=== PATIENT | female | born 1970 | race American Indian/Alaskan Native ===

== ENCOUNTER 2016-03-15 14:27 | Emergency (ER) | payer MEDICAID ==
[2016-03-15 14:59] VITALS: BP 112/81
--- NOTE | 2016-03-15 15:22 | Emergency Department Report ---
Chief Complaint: Head Injury Stated Complaint: HEAD INJURY Time Seen by Provider: 03/15/16 15:17 - HPI History of Present Illness: 46-year-old female presents today post head injury that occurred this morning. Patient states that she hit her head on the corner of a wall. Positive for nausea. Denies decrease in vision but states she is having trouble focusing. Denies fever, chills, chest pain, shortness of breath, abdominal pain. The patient recently had an MRI because her doctors think she may have seizures. - ROS Review of Systems: Per HPI - Exam Vital Signs: Vital Signs 03/15/16 14:55 Temperature 98.6 F Pulse Rate 87 Respiratory 16 Rate Blood Pressure 112/81 O2 Sat by Pulse 97 Oximetry Physical Exam: General: 46-year-old female in no acute distress. Well-developed, well- nourished. CV: Regular rate and rhythm. Lungs: Clear to auscultation bilaterally. Neuro: Alert and oriented 3, normal gait, fluid speech, EOMs intact, no facial droop, normal facial sensation, GCS equals 15 MSE screening note: Focused history and physical exam performed. Due to findings the following was ordered: ED Disposition for MSE Condition: Stable
[2016-03-15 15:40] LABS: Hematocrit 37.5 % (30.3-42.9); Mean Corpuscular HGB Conc 32 % (30-34); Mean Corpuscular Hemoglobin 29 pg (28-32); Mean Corpuscular Volume 91 fl (79-97); Platelet Count 243 K/mm3 (140-440); Red Blood Count 4.13 M/mm3 (3.65-5.03); White Blood Count 6.4 K/mm3 (4.5-11.0)
[2016-03-15 15:53] LABS: Red Cell Distribution Width 31.9 % (13.2-15.2)
[2016-03-15 16:11] LABS: Blood Urea Nitrogen 8 mg/dL (7-17); Calcium 8.2 mg/dL (8.4-10.2); Carbon Dioxide 26 mmol/L (22-30); Chloride 106.3 mmol/L (98-107); Glucose 83 mg/dL (65-100); Potassium 3.7 mmol/L (3.6-5.0); Sodium 143 mmol/L (137-145)
[2016-03-15 16:27] LABS: Anion Gap 14 mmol/L
--- NOTE | 2016-03-15 16:51 | Cat Scan Report ---
CT HEAD WITHOUT CONTRAST INDICATION: Head injury. COMPARISON: 10/28/2013. FINDINGS: Noncontrast head CT again demonstrates normal ventricles and sulci without acute or recent infarct, hemorrhage, mass effect or midline shift. No abnormal extra-axial fluid collections. Posterior fossa structures and basilar cisterns appear within normal limits. Symmetric eye globes. Clear paranasal sinuses and mastoid air cells. Intact calvarium. Normal overlying scalp soft tissues. Few radiopaque dental material incidentally noted. CONCLUSION: No acute intracranial CT abnormality, as described. Thank you for the opportunity to participate in this patient's care.
[2016-03-15 17:05] LABS: Anisocytosis 2+; Basophils % (Manual) 0 % (0.0-1.8); Blastocytes % (Manual) 0 %
[2016-03-15 17:06] LABS: Diff Status Complete; Poikilocytosis 1+; Target Cells Few
--- NOTE | 2016-03-17 14:22 | ED Elopement Review ---
ED Pt Elopement review - Results review Lab results: Laboratory Tests 03/15/16 03/15/16 15:24 15:24 WBC 6.4 RBC 4.13 Hgb 12.0 Hct 37.5 MCV 91 MCH 29 MCHC 32 RDW 31.9 H Plt Count 243 Add Manual Diff Complete Total Counted 100 Seg Neuts % (Manual) 64.0 Band Neutrophils % 0 Lymphocytes % (Manual) 28.0 Reactive Lymphs % (Man) 0 Monocytes % (Manual) 5.0 Eosinophils % (Manual) 3.0 Basophils % (Manual) 0 Metamyelocytes % 0 Myelocytes % 0 Promyelocytes % 0 Blast Cells % 0 Nucleated RBC % Not Reportable Seg Neutrophils # Man 4.1 Band Neutrophils # 0.0 Lymphocytes # (Manual) 1.8 Abs React Lymphs (Man) 0.0 Monocytes # (Manual) 0.3 Eosinophils # (Manual) 0.2 Basophils # (Manual) 0.0 Metamyelocytes # 0.0 Myelocytes # 0.0 Promyelocytes # 0.0 Blast Cells # 0.0 WBC Morphology Not Reportable Hypersegmented Neuts Not Reportable Hyposegmented Neuts Not Reportable Hypogranular Neuts Not Reportable Smudge Cells Not Reportable Toxic Granulation Not Reportable Toxic Vacuolation Not Reportable Dohle Bodies Not Reportable Pelger-Huet Anomaly Not Reportable Tho Rods Not Reportable Platelet Estimate Appears normal Clumped Platelets Not Reportable Plt Clumps, EDTA Not Reportable Large Platelets Not Reportable Giant Platelets Not Reportable Platelet Satelliting Not Reportable Plt Morphology Comment Not Reportable RBC Morphology Not Reportable Dimorphic RBCs Not Reportable Polychromasia Not Reportable Hypochromasia Not Reportable Poikilocytosis 1+ Anisocytosis 2+ Microcytosis Not Reportable Macrocytosis Not Reportable Spherocytes Not Reportable Pappenheimer Bodies Not Reportable Sickle Cells Not Reportable Target Cells Few Tear Drop Cells Not Reportable Ovalocytes Not Reportable Helmet Cells Not Reportable Mliler-Hardtner Bodies Not Reportable [place] Rings Not Reportable Glynn Cells Not Reportable Bite Cells Not Reportable Crenated Cell Not Reportable Elliptocytes Not Reportable Acanthocytes (Spur) Not Reportable Rouleaux Not Reportable Hemoglobin C Crystals Not Reportable Schistocytes Not Reportable Malaria parasites Not Reportable Bhargav Bodies Not Reportable Hem Pathologist Commnt No Sodium 143 Potassium 3.7 Chloride 106.3 Carbon Dioxide 26 Anion Gap 14 BUN 8 Creatinine 0.5 L Estimated GFR > 60 BUN/Creatinine Ratio 16.00 Glucose 83 Calcium 8.2 L - Call Back decision Pt Call Back Decision: Pt to F/U with PMD (syncope should be further evaluated. The patient should informed to follow up with her primary physician if she doesn't have a primary physician she should return to the ED)
== END 2016-03-16 02:15 | disposition left against medical advice (07) ==
LOC: ED 14:27
DX: S09.90XA Unspecified injury of head, initial encounter (principal); W22.8XXA Striking against or struck by other objects, initial encounter; Y93.9 Activity, unspecified; Y92.89 Other specified places as the place of occurrence of the external cause; Y99.9 Unspecified external cause status; Z53.21 Procedure and treatment not carried out due to patient leaving prior to being seen by health care provider
CPT/HCPCS: 36415; 70450; 80048; 85007; 85025

== ENCOUNTER 2016-11-05 09:04 | Emergency (ER) | payer MEDICAID ==
[2016-11-05 09:44] LABS: Basophils % (Auto) 0.4 % (0.0-1.8); Eosinophils % (Auto) 3.6 % (0.0-4.3); Hematocrit 38.5 % (30.3-42.9); Hemoglobin 12.5 gm/dl (10.1-14.3); Mean Corpuscular HGB Conc 32 % (30-34); Mean Corpuscular Hemoglobin 33 pg (28-32); Mean Corpuscular Volume 101 fl (79-97); Platelet Count 316 K/mm3 (140-440); Red Blood Count 3.83 M/mm3 (3.65-5.03); Red Cell Distribution Width 14.4 % (13.2-15.2); White Blood Count 7.7 K/mm3 (4.5-11.0)
[2016-11-05 10:05] LABS: Alanine Aminotransferase 8 units/L (7-56); Albumin 3.9 g/dL (3.9-5); Albumin/Globulin Ratio 1.6 %; Alkaline Phosphatase 99 units/L (35-129); Anion Gap 17 mmol/L; Blood Urea Nitrogen 11 mg/dL (7-17); Calcium 8.5 mg/dL (8.4-10.2); Carbon Dioxide 24 mmol/L (22-30); Chloride 106.5 mmol/L (98-107); Glucose 86 mg/dL (65-100); Lipase 26 units/L (13-60); Potassium 4.1 mmol/L (3.6-5.0); Sodium 143 mmol/L (137-145); Total Protein 6.4 g/dL (6.3-8.2)
[2016-11-05 11:19] LABS: Bacteria,Urine 4+ /HPF (Negative); Bilirubin,Urine NEG (Negative); Blood,Urine LG (Negative); Ketones,Urine NEG (Negative); Leukocyte Esterase,Urine TR (Negative); Mucus,Urine 1+ /HPF; Nitrite,Urine POS (Negative); Protein,Urine <15 mg/dL mg/dL (Negative)
[2016-11-05] MEDS ORDERED: MORPHINE IV ONE (11:25)
--- NOTE | 2016-11-05 11:25 | Emergency Department Report ---
HPI - General Chief Complaint: Abdominal Pain Time Seen by Provider: 11/05/16 11:08 - HPI HPI: This is a 46 year-old female who drove himself in to be seen with a complaint of a four-day history of left lower quadrant abdominal pain as well as some black tarry stools. Patient does have a history of gastric ulcer in the past. She has a history of asthma, anemia, migraine headaches, hypertension, hypothyroidism and has a surgical history of gastric bypass surgery. The patient has required transfusions in the past. She sees a Dr. Hyman at [facility] and her primary care physician is Dr. Kirsten Gaytan. She has been taking Pepto-Bismol "by the [employer]" as well as increasing the sucralfate but she has not gotten any relief. She denies any fever, nausea , vomiting, dysuria, vaginal bleeding or discharge. No recent travel or sick contacts at home. ED Past Medical Hx - Past Medical History Previous Medical History?: Yes Hx Hypertension: Yes Hx Diabetes: No Hx Headaches / Migraines: Yes Hx Psychiatric Treatment: No Hx Asthma: Yes Hx COPD: No Hx HIV: No Additional medical history: hypothyroid. fibromyalgia - Surgical History Past Surgical History?: Yes Additional Surgical History: gastric bypass - Social History Smoking Status: Never Smoker Substance Use Type: None - Medications Home Medications: Home Medications Medication Instructions Recorded Confirmed Last Taken Type ALPRAZolam [Xanax] 1 mg PO HS PRN 11/01/12 03/10/14 10/31/12 23:30 History Duloxetine HCl [Cymbalta] 60 mg PO QDAY 11/01/12 03/10/14 10/31/12 08:00 History HYDROcodone/APAP ORAL LIQD [Lortab 15 ml PO Q6H PRN 11/01/12 03/10/14 10/23/12 History 7.5-500 mg/15 ml] Levothyroxine [Synthroid] 125 mcg PO QAM 11/01/12 03/10/14 10/31/12 07:00 History Pregabalin [Lyrica] 75 mg PO TID 11/01/12 03/10/14 10/31/12 22:00 History SUMAtriptan SUCCINATE [Imitrex] 100 mg PO PRN PRN 11/01/12 03/10/14 10/31/12 22: 30 History Oxycodone HCl/Acetaminophen 1 each PO Q6HR PRN #10 tablet 10/28/13 03/10/14 Unknown Rx [Percocet 10/325 mg] Potassium Chloride [Klor-Con 10] 10 meq PO DAILY 10/28/13 03/10/14 Unknown History Sennosides/Docusate Sodium [Stool 100 mg PO DAILY 10/28/13 03/10/14 Unknown History Softener Tablet] Temazepam 15 mg PO QDAY 10/28/13 03/10/14 Unknown History Valsartan/Hydrochlorothiazide 160 mg PO DAILY 10/28/13 03/10/14 Unknown History [Valsartan-Hctz 320-12.5 mg] clonazePAM [Klonopin] 1 mg PO TID 10/28/13 03/10/14 Unknown History methOCARBAMOL [Robaxin TAB] 500 mg PO DAILY 10/28/13 03/10/14 Unknown History traMADol [Ultram 50 MG tab] 50 mg PO Q6HR PRN #10 tablet 11/05/16 Unknown Rx ED Review of Systems ROS: Stated complaint: LWR ABD PAIN/DARK STOOL Other details as noted in HPI Comment: All other systems reviewed and negative Constitutional: denies: chills, fever Eyes: denies: eye pain, eye discharge, vision change ENT: denies: ear pain, throat pain Respiratory: denies: cough, shortness of breath, wheezing Cardiovascular: denies: chest pain, palpitations Gastrointestinal: abdominal pain, melena. denies: nausea, vomiting Genitourinary: denies: urgency, dysuria, discharge Musculoskeletal: denies: back pain, joint swelling, arthralgia Skin: denies: rash, lesions Neurological: denies: headache, weakness, paresthesias Physical Exam - Physical Exam Vital Signs: Vital Signs 11/05/16 11/05/16 09:07 11:09 Temperature 98.7 F 98.5 F Pulse Rate 65 58 L Respiratory 18 18 Rate Blood Pressure 120/77 Blood Pressure 124/77 [Left] O2 Sat by Pulse 100 Oximetry Physical Exam: GENERAL: The patient is well-developed well-nourished. HENT: Normocephalic. Atraumatic. Patient has moist mucous membranes. EYES: Extraocular motions are intact. Pupils equal reactive to light bilaterally. NECK: Supple. Trachea is midline. CHEST/LUNGS: Clear to auscultation. There is no respiratory distress noted. HEART/CARDIOVASCULAR: Regular. There is no tachycardia. There is no gallop rub or murmur. ABDOMEN: Abdomen is soft. There is some reproducible tenderness to palpation to the left lower quadrant of the abdomen. No guarding rebound tenderness. Patient has normal bowel sounds. There is no abdominal distention. SKIN: Skin is warm and dry. NEURO: The patient is awake, alert, and oriented. The patient is cooperative. The patient has no focal neurologic deficits. The patient has normal speech. MUSCULOSKELETAL: There is no tenderness or deformity. There is no limitation range of motion. There is no evidence of acute injury. RECTAL: No hemorrhoids or lesions seen. There is some dark stool but does not appear to be positive on guaiac testing. ED Course Vital Signs 11/05/16 11/05/16 09:07 11:09 Temperature 98.7 F 98.5 F Pulse Rate 65 58 L Respiratory 18 18 Rate Blood Pressure 120/77 Blood Pressure 124/77 [Left] O2 Sat by Pulse 100 Oximetry ED Medical Decision Making - Lab Data Result diagrams: 11/05/16 09:32 11/05/16 09:32 - Radiology Data Radiology results: report reviewed CT the abdomen and pelvis with IV contrast shows signs consistent of previous gastric bypass surgery as well as a dilated left calyx. Transvaginal/pelvic ultrasound does not show any signs of torsion and shows small bilateral ovarian cysts. - Medical Decision Making 46-year-old female with history of gastric bypass surgery and gastric ulcers presents with the complaint of melena and left lower quadrant abdominal pain. Labs are mostly unremarkable. CT of the abdomen and pelvis with IV contrast does not show any signs of any acute process or etiology of her symptoms. Transvaginal/pelvic ultrasound shows some bilateral ovarian cysts they are small and otherwise there is no torsion or any other acute process. Vital signs stable throughout her ED course. The patient continues saying she is having discomfort but is often seen sleeping and/or reading her book. However the patient does appear stable for discharge home at this time and has been encouraged to follow up with her primary care physician as well as her verification engineer. - Differential Diagnosis diverticulitis, colitis, PUD, ovarian torsion, fibroids Critical Care Time: No Critical care attestation.: If time is entered above; I have spent that time in minutes in the direct care of this critically ill patient, excluding procedure time. ED Disposition Clinical Impression: Rectal bleeding Abdominal pain Qualifiers: Abdominal location: left lower quadrant Qualified Code(s): R10.32 - Left lower quadrant pain Ovarian cyst Qualifiers: Laterality: bilateral Qualified Code(s): N83.201 - Unspecified ovarian cyst, right side Disposition: TO HOME OR SELFCARE Is pt being admited?: No Condition: Stable Instructions: Ovarian Cyst (ED), Rectal Bleeding (ED), Abdominal Pain (ED) Additional Instructions: Please follow-up with your primary care physician as well as her verification engineer. Return to the emergency Department with any worsening of your symptoms or any acute distress. You have been prescribed a medication that is sedating and therefore should not be taken prior to driving, working, and responsible for children and in no way should be mixed with alcohol of any quantity. Prescriptions: traMADol [Ultram 50 MG tab] 50 mg PO Q6HR PRN #10 tablet PRN Reason: Pain Referrals: MATTHEW GAYTAN MD [Staff Physician] - [place] Time of Disposition: 19:05
--- NOTE | 2016-11-05 13:42 | Cat Scan Report ---
CT abdomen and pelvis with contrast: Low abdominal pain. Transverse images were obtained through the low chest to the ischium. Coronal and sagittal 2-D reformatted images included. The visualized lung bases are clear. There are surgical sutures in the gastric fundus with attached small bowel at the mid body. There is a small right peripelvic renal cyst. In the superior left kidney there is a calcification and a central dilated low attenuation region. On the delayed images this area fills with contrast. The kidney is not otherwise remarkable. The nonopacified bowel and mesentery also demonstrate surgical sutures in small bowel loops in the mid left abdomen. No other findings. The appendix is visualized with no inflammatory changes. In IUD appears well-positioned. Impression: 1. Changes consistent with gastric bypass. 2. Dilated calyx/pyramid with small calcification in left upper kidney.
[2016-11-05] MEDS ORDERED: DILAUDID IV ONE (14:04)
[2016-11-05] MEDS ORDERED: BENADRYL ONE (15:06)
[2016-11-05] MEDS ORDERED: BENADRYL IV ONE (15:07)
--- NOTE | 2016-11-05 19:01 | Ultrasound Report ---
FINAL REPORT EXAM: US TRANSVAGINAL HISTORY: pelvic pain TECHNIQUE: Endovaginal ultrasound was performed in multiple grayscale sonographic images were obtained of the uterus and adnexa. Doppler interrogation of the ovaries was performed. PRIORS: Transabdominal pelvic ultrasound 11/05/2016 FINDINGS: Intrauterine device noted. Endometrial stripe thickness is estimated at 3 millimeters. Left ovary measures approximately 4.5 x 3.2 x 3.7 centimeters. Multiple follicles are noted. There is a cyst that measures 2.6 x 2.6 x 1.9 centimeters. Blood flow was detected in the left ovary. Right ovary measures approximately 3.9 x 2.5 x 3.3 centimeters. There is an 11 millimeter cyst. Blood flow was detected in the right ovary. IMPRESSION: 1. Bilateral ovarian cysts are noted. 2. Blood flow was detected in the ovaries, bilaterally. 3. Intrauterine device is noted. 4. Please refer to report from transabdominal pelvic ultrasound from 11/05/2016 for additional information.
--- NOTE | 2016-11-05 19:02 | Ultrasound Report ---
FINAL REPORT EXAM: US PELVIS DUPLEX DOPPLER COMP HISTORY: pelvic pain TECHNIQUE: Transabdominal pelvic ultrasound was performed in multiple grayscale sonographic images were obtained of the uterus and at adnexa. PRIORS: Endovaginal ultrasound of the pelvis from 11/05/2016 FINDINGS: The uterus measures approximately 8.8 x 4.3 x 5.1 centimeters with endometrial stripe thickness 1 millimeter. Left ovary measures approximately 3.3 x 2.3 x 3.7 centimeters. There is a cyst that measures approximately 1.9 x 1.7 centimeters. Right ovary was not visualized. IMPRESSION: 1. 1.9 centimeter left ovarian cyst. 2. Nonvisualization of right ovary. 3. Please refer to dictation from endovaginal ultrasound from 11/05/2016 for additional information.
[2016-11-05 19:37] VITALS: BP 132/78
== END 2016-11-05 19:38 | disposition home or self-care (01) ==
LOC: ED 09:04
DX: N83.201 Unspecified ovarian cyst, right side (principal); R10.32 Left lower quadrant pain; K62.5 Hemorrhage of anus and rectum; I10 Essential (primary) hypertension; G43.909 Migraine, unspecified, not intractable, without status migrainosus; J45.909 Unspecified asthma, uncomplicated
CPT/HCPCS: 36415; 74177; 76830; 80053; 81001; 81025; 83690; 85025; 93975; 96374; 96375; 99284; J1170; J1200; J2270; Q9967

== ENCOUNTER 2018-03-15 07:04 | Observation (INO) | payer MEDICAID, OTHER ==
[2018-03-10 11:17] LABS: Basophils % (Auto) 0.6 % (0.0-1.8); Eosinophils # (Auto) 0.1 K/mm3 (0.0-0.4); Eosinophils % (Auto) 1.7 % (0.0-4.3); Hematocrit 35.6 % (30.3-42.9); Hemoglobin 11.8 gm/dl (10.1-14.3); Lymphocytes # (Auto) 1.4 K/mm3 (1.2-5.4); Lymphocytes % (Auto) 19.4 % (13.4-35.0); Mean Corpuscular HGB Conc 33 % (30-34); Mean Corpuscular Volume 102 fl (79-97); Monocytes # (Auto) 0.5 K/mm3 (0.0-0.8); Monocytes % (Auto) 6.9 % (0.0-7.3); Platelet Count 270 K/mm3 (140-440); Red Blood Count 3.49 M/mm3 (3.65-5.03); Red Cell Distribution Width 13.6 % (13.2-15.2)
[2018-03-10 11:30] LABS: BUN/Creatinine Ratio 20; Blood Urea Nitrogen 10 mg/dL (7-17); Calcium 8.4 mg/dL (8.4-10.2); Hemolysis Index 6
--- NOTE | 2018-03-10 15:20 | Anesthesia Consultation ---
Anesthesia Consult and Med Hx Date of service: 03/10/18 - Airway Anesthetic Teeth Evaluation: Poor ROM Head & Neck: Adequate Mental/Hyoid Distance: Adequate Mallampati Class: Class III Intubation Access Assessment: Possibly Difficult - Pulmonary Exam CTA: Yes - Cardiac Exam Cardiac Exam: RRR - Pre-Operative Health Status ASA Pre-Surgery Classification: ASA3 Proposed Anesthetic Plan: General Nerve Block: TAP Block (AMOS, HTN, Asthma, Denies GERD) - Pulmonary Hx Asthma: Yes (Last treated 4 weeks ago) COPD: No Hx Pneumonia: No Hx Sleep Apnea: Yes (No CPAP, before bypass) - Cardiovascular System Hx Hypertension: Yes Hx Heart Murmur: Yes - Central Nervous System Hx Seizures: Yes (Not sure, may have had one but not diagnosed) Hx Psychiatric Problems: Yes - Endocrine Hx End Stage Renal Disease: No Hx Hypothyroidism: Yes - Hematic Hx Anemia: Yes (Past hx) - Other Systems Hx Alcohol Use: Yes (Occas) Hx Cancer: No
[~2018-03-15 07:04] MED LIST: LACTATED RINGERS 1,000 ML IV SCH; NEURONTIN PO NR; PROVENTIL IH PRN; VERSED IV NR
--- NOTE | 2018-03-15 07:36 | History and Physical Report ---
History of Present Illness Date of examination: 03/15/18 Date of admission: 03/15/2018 Chief complaint: dysfunctional uterine bleeding History of present illness: 48y/o with dysfunctional uterine bleeding. The patient has used multiple medication modalities without success. Pelvic ultrasound is suggestive of adenomyosis. The has growing concern over continued hormonal exposure for control of her abnormal bleeding. Past History Past Medical History: hypertension, GERD, other (thyroid disorder; arthritis; fibromyalgia) Past Surgical History: other (gastric bypass) Social history: - Obstetrical History : 5 Para: 2 Hx # Term Pregnancies: 0 Number of Pregnancies: 2 Spontaneous Abortions: 2 Induced : 1 Number of Living Children: 2 Medications and Allergies Allergies Allergy/AdvReac Type Severity Reaction Status Date / Time contrast dye Allergy Rash, Uncoded 03/09/18 08:20 reddened skin Home Medications Medication Instructions Recorded Confirmed Last Taken Type ALPRAZolam [Xanax] 2 mg PO TID 11/01/12 03/10/18 10/31/12 23:30 History Duloxetine HCl [Cymbalta] 60 mg PO QDAY 11/01/12 03/10/18 10/31/12 08:00 History Levothyroxine [Synthroid] 125 mcg PO QAM 11/01/12 03/10/18 10/31/12 07:00 History Pregabalin [Lyrica] 150 mg PO TID 11/01/12 03/10/18 10/31/12 22:00 History SUMAtriptan SUCCINATE [Imitrex] 100 mg PO PRN PRN 11/01/12 03/10/18 10/31/12 22:30 History Potassium Chloride [Klor-Con 10] 10 meq PO DAILY 10/28/13 03/10/18 Unknown History Sennosides/Docusate Sodium [Stool 100 mg PO DAILY 10/28/13 03/10/18 Unknown History Softener Tablet] ALBUTEROL NEB's [Proventil] 2.5 mg IH TID PRN 03/10/18 03/10/18 Unknown History Acyclovir [Zovirax Tab] 800 mg PO Q12H PRN 03/10/18 03/10/18 Unknown History Albuterol Sulfate [Ventolin Hfa] 2 puff IH Q4H PRN 03/10/18 03/10/18 Unknown History Buspirone HCl [busPIRone] 7.5 mg PO DAILY 03/10/18 03/10/18 Unknown History Cetirizine HCl [All Day Allergy] 10 mg PO DAILY 03/10/18 03/10/18 Unknown History Clonidine HCl [Catapres] 0.3 mg PO HS 03/10/18 03/10/18 Unknown History Dicyclomine [Bentyl] 20 mg PO BID 03/10/18 03/10/18 Unknown History Ergocalciferol [Vitamin D2] 1 cap PO QWEEK 03/10/18 03/10/18 Unknown History FLUoxetine HCL [Fluoxetine HCl] 40 mg PO DAILY 03/10/18 03/10/18 Unknown History Ferrous Sulfate [Feosol 325 MG tab] 325 mg PO TID 03/10/18 03/10/18 Unknown History Fluticasone [Flonase] 1 spray NS BID 03/10/18 03/10/18 Unknown History Hydrocortisone [Anusol-Hc] 30 gm RC DAILY PRN 03/10/18 03/10/18 Unknown History Ibuprofen [Motrin] 800 mg PO Q8HR PRN 03/10/18 03/10/18 Unknown History Lidocaine Topical 2% 30Ml 1 cream TRANSDERMA PRN PRN 03/10/18 03/10/18 Unknown History [Xylocaine Topical 2% 30Ml] Montelukast [Singulair] 10 mg PO QPM 03/10/18 03/10/18 Unknown History Norelgestromin/Ethin.estradiol 1 each TD QWEEK 03/10/18 03/10/18 Unknown History [Xulane Patch] Ondansetron [Zofran TAB] 4 mg PO Q8HR PRN 03/10/18 03/10/18 Unknown History Oxycodone HCl/Acetaminophen 1 each PO Q6HR PRN 03/10/18 03/10/18 Unknown History [Percocet 10/325 mg] Propranolol [Inderal] 40 mg PO DAILY 03/10/18 03/10/18 Unknown History amLODIPine [Norvasc] 10 mg PO DAILY 03/10/18 03/10/18 Unknown History Active Meds: Active Medications Albuterol (Proventil) 2.5 mg IH PREOP PRN PRN Reason: Wheezing Last Admin: 03/15/18 07:30 Dose: 2.5 mg Documented by: Celecoxib (Celebrex) 200 mg PO PREOP NR Stop: 03/15/18 23:59 Last Admin: 03/15/18 07:29 Dose: 200 mg Documented by: Gabapentin (Neurontin) 300 mg PO PREOP NR Stop: 03/15/18 23:59 Last Admin: 03/15/18 07:28 Dose: 300 mg Documented by: Hydromorphone HCl (Dilaudid) 0.5 mg IV Q10MIN PRN PRN Reason: Pain , Severe (7-10) Stop: 03/15/18 23:59 Lactated Ringer's (Lactated Ringers) 1,000 mls @ 75 mls/hr IV DIRECT AMY Last Admin: 03/15/18 07:30 Dose: 75 mls/hr Documented by: Midazolam HCl (Versed) 2 mg IV PREOP NR Stop: 03/15/18 23:59 - Vital Signs Vital signs: Vital Signs Temp Pulse Resp BP 98.6 F 60 18 100/68 03/10/18 10:50 03/10/18 10:50 03/10/18 10:50 03/10/18 10:50 Temp Pulse Resp BP Pulse Ox 98.6 F 60 18 100/68 03/10/18 10:50 03/10/18 10:50 03/10/18 10:50 03/10/18 10:50 - Physical Exam Breasts: Positive: deferred Cardiovascular: Regular rate Lungs: Positive: Clear to auscultation Abdomen: Positive: normal appearance Results Result Diagrams: 03/10/18 11:00 03/10/18 11:00 All other labs normal. Assessment and Plan - Patient Problems (1) Dysfunctional uterine bleeding Current Visit: Yes Status: Acute Plan to address problem: scheduled for a robotic hysterectomy
[2018-03-15] MEDS ORDERED: NACL 0.9% 250ML 250 ML ONE (07:42)
[2018-03-15] MEDS ORDERED: THROMBIN (BOVINE) TP ONE ×2 (07:47→09:31)
[2018-03-15] MEDS ORDERED: NEOSPORIN GU IR ONE (07:47)
[2018-03-15] MEDS ORDERED: GELFOAM POWDER 1GM MM ONE ×2 (07:47→09:30)
[2018-03-15] MEDS ORDERED: MARCAINE 0.25% INFILTRATI ONE (07:54)
[2018-03-15] MEDS ORDERED: DECADRON ONE (07:54)
[2018-03-15] MEDS ORDERED: ZOFRAN ONE (07:59)
[2018-03-15] MEDS ORDERED: ANCEF/STERILE WATER 2 GM/20 ML 2 GM/20 ML SYRINGE IV SCH (08:00)
[2018-03-15] MEDS ORDERED: DILAUDID ONE (08:18)
[2018-03-15] MEDS ORDERED: DIPRIVAN 10 MG/ML IV ONE (08:19)
[2018-03-15] MEDS ORDERED: XYLOCAINE MPF 2% ONE (08:20)
[2018-03-15] MEDS ORDERED: ZEMURON IV ONE (08:20)
--- NOTE | 2018-03-15 09:09 | Anesthesia Day of Surgery ---
Anesthesia Day of Surgery - Day of Surgery Patient Examined: Yes Patient H&P Reviewed: Yes Patient is NPO: Yes
--- NOTE | 2018-03-15 09:13 | Progress Note ---
Subjective Date of service: 03/15/18 (Block Procedure Note) Interval history: Risk, benefits, alternatives to nerve block discussed and informed consent obtained. Patient placed on ASA monitors, safety time-out performed, and versed IV administered for sedation. Bilateral quadratus lumbarum blocks performed with ultrasound guidance under clean conditions. Negative heme aspiration or parasthesias. Patient tolerated well without immediate complications. Objective - Labs CBC & Chem 7: 03/10/18 11:00 03/10/18 11:00
[2018-03-15] MEDS ORDERED: NACL 0.9% IR ONE ×2 (09:32)
[2018-03-15] MEDS ORDERED: NARCAN 0.4 MG/1 ML IV PRN (09:46)
[2018-03-15] MEDS ORDERED: MILK OF MAGNESIA PO PRN (09:47)
[2018-03-15] MEDS ORDERED: IBUPROFEN PO PRN (09:47)
[2018-03-15] MEDS ORDERED: TYLENOL PO PRN (09:47)
[2018-03-15] MEDS ORDERED: AMBIEN PO PRN (09:47)
[2018-03-15] MEDS ORDERED: ZOFRAN IV PRN (09:47)
--- NOTE | 2018-03-15 09:51 | Operative Report ---
Operative Report Operative Report: Date of surgery: 03/15/2018 Preoperative diagnoses: Dysfunctional uterine bleeding; adenomyosis Postoperative diagnoses: Same as above; right ovarian cyst Procedure: Robotic hysterectomy and bilateral salpingo-oophorectomy Surgeon: Bridget Simons M.D. [place] Turner: Mitch Johnson Anesthesia: Gen. endotracheal anesthesia Estimated blood loss: 60 mL Pathology: Uterus, cervix, bilateral tubes and ovaries Indication: 48-year-old with a history of dysfunctional uterine bleeding. Patient failed medical management and elected to undergo definitive surgical management. Procedure: The patient was taken to the operating room and given general endotracheal anesthesia without complication. She is prepped and draped in a normal sterile fashion. A bivalve speculum was placed in the patient's vagina and a single- tooth tenaculum placed on the anterior lip of the cervix. The uterus was sounded with the uterine sound. A [employer] uterine manipulator was placed in the bivalve speculum was then removed. Attention was then turned to the patient's abdomen where a 12 millimeter supra umbilical skin incision was then made. A Veress needle was placed and peritoneal entry was verified water-filled syringe. Insufflation of the peritoneal cavity was performed with CO2 gas. The 12 mm trocar was then placed under direct visualization. An additional 8 mm trocar was placed on the patient's left and right lateral side just opposite of the supraumbilical trocar. An additional 5 mm right lateral trocar was then placed as the accessory port. The Jam Hernandez device was used to close the fascia of the 12 mm incision. The patient was then placed in steep Trendelenburg. The da Anibal robot was then engaged. General survey of the patient's abdomen and pelvis revealed a right ovarian cyst. The uterus appeared normal in size. The left ovary was normal in appearance. A fenestrated forcep was placed in arm 2 and a vessel sealer was placed in arm 1. The surgeon then transferred to the surgical console. The infundibulopelvic ligament was then isolated on the right. The vessel sealer was used to coagulate the ligament which was then transected. The tube and ovary were transected from the supply. The round ligament was then coagulated and transected also. The vesicouterine peritoneum was then entered from the patient's right side. The uterine vessels were then coagulated with the vessel sealer. The vessels were then transected . Attention was then turned to the patient's left side where the infundibulopelvic ligament and mesosalpinx were again isolated coagulated and transected. The vesical peritoneum was then entered from the left and joined in the midline. Peritoneum was reflected off of the lower uterine segment. Uterine vessels were then coagulated and then transected. The blood supply to the uterus was adequately contained, a posterior colpotomy was made. The V care ring was visualized. Posterior colpotomy was created with the monopolar scissors. The incision was continued circumferentially until anterior colpotomy was made. The cervix and uterus were amputated from the vaginal cuff. The uterus was then removed along with the tubes and ovaries bilaterally through the vagina and a warm laparotomy sponge was placed and maintain the pneumoperitoneum. The vaginal cuff was then closed in a running fashion with V lock suture. Irrigation of the pelvis was performed. Gelfoam with thrombin was applied to the incision. The skin was then reapproximated with 4-0 Monocryl. The tissue was sent to pathology which included the cervix, uterus, tubes and ovaries. The patient was then successfully extubated. She was then taken to the recovery room in stable condition. All sponge laps and needle counts were correct x2.
[2018-03-15] MEDS ORDERED: D5LR 1,000 ML IV SCH (10:00)
[2018-03-15] MEDS ORDERED: ROBINUL ONE (10:08)
[2018-03-15] MEDS ORDERED: BLOXIVERZ ONE (10:08)
[2018-03-15] MEDS: DILAUDID IV PRN ×3 (10:28→10:55)
[2018-03-15] MEDS ORDERED: MORPHINE PCA 30MG/30ML IV SCH (11:00)
--- NOTE | 2018-03-15 14:39 | Post Anesthesia Evaluation ---
- Post Anesthesia Evaluation Patient Participated: Yes Airway Patent: Yes Stable Respiratory Function: Yes Nausea/Vomiting: No Temp > 96.8F: Yes Pain Manageable: Yes Adequeate Hydration: Yes Anesthesia Complications: No
[2018-03-15] MEDS: TORADOL IV SCH ×2 (16:04→21:45)
[2018-03-15] MEDS: NORCO 5/325 PO PRN (21:51)
[2018-03-16] MEDS: NORCO 5/325 PO PRN ×2 (01:52→10:15)
[2018-03-16 06:11] LABS: Hematocrit 32.2 % (30.3-42.9); Hemoglobin 10.8 gm/dl (10.1-14.3)
--- NOTE | 2018-03-16 08:27 | Progress Note ---
Assessment and Plan - Patient Problems (1) Dysfunctional uterine bleeding Current Visit: Yes Status: Acute Plan to address problem: patient doing well advance diet as tolerated Subjective - Subjective Date of service: 03/16/18 Interval history: The patient reports feeling well. She is tolerating a clear diet without complication. Pain has been well controlled. Patient reports: appetite normal, pain well controlled Objective - Vital Signs Latest vital signs: Vital Signs Temp Pulse Pulse Resp Resp BP BP 03/16/18 04:00 98.6 F 78 16 100/68 03/16/18 01:52 18 03/16/18 00:30 98.7 F 73 18 114/64 03/15/18 21:51 20 03/15/18 21:45 20 03/15/18 21:35 20 03/15/18 19:50 62 20 03/15/18 19:30 98.7 F 64 18 132/77 03/15/18 17:48 98.7 F 60 18 126/72 03/15/18 11:35 98.1 F 66 20 123/70 123/70 03/15/18 11:25 14 03/15/18 11:15 58 L 16 116/63 03/15/18 11:00 56 L 15 116/62 03/15/18 10:55 12 03/15/18 10:45 57 L 9 L 121/63 03/15/18 10:38 12 03/15/18 10:30 54 L 12 123/67 03/15/18 10:28 14 03/15/18 10:25 50 L 18 119/65 03/15/18 10:20 51 L 11 L 110/64 03/15/18 10:15 97.7 F 51 L 19 117/64 Pulse Ox 03/16/18 04:00 03/16/18 01:52 03/16/18 00:30 03/15/18 21:51 03/15/18 21:45 03/15/18 21:35 03/15/18 19:50 03/15/18 19:30 03/15/18 17:48 99 03/15/18 11:35 100 03/15/18 11:25 03/15/18 11:15 99 03/15/18 11:00 100 03/15/18 10:55 03/15/18 10:45 100 03/15/18 10:38 03/15/18 10:30 100 03/15/18 10:28 03/15/18 10:25 100 03/15/18 10:20 100 03/15/18 10:15 100 Intake and Output 03/15/18 03/16/18 03/16/18 22:59 06:59 14:59 Intake Total 1030 540 Output Total 3450 2950 Balance -2420 -2410 Intake: Oral 310 240 Intake, Free Water 720 300 Output: Urine 3450 2950 Indwelling Catheter 2550 2950 Other: Total, Intake Amount 310 240 Total, Output Amount 900 1000 Voiding Method Indwelling Catheter
--- NOTE | 2018-03-16 08:28 | Discharge Summary ---
Providers - Providers Date of Admission: 03/15/18 09:47 Date of discharge: 03/16/18 Attending physician: ANGEL GIL Primary care physician: MATTHEW GAYTAN Hospitalization Reason for admission: other (DUB) Procedure: other (robotic hysterectomy and BSO) Discharge diagnosis: other (DUB) Hospital course: Patient was admitted for a robotic hysterectomy. See op note. Post op uncomplicated Condition at discharge: Good Disposition: DC-01 TO HOME OR SELFCARE - Discharge Diagnoses (1) Dysfunctional uterine bleeding Status: Acute Plan - Discharge Medications Prescriptions: HYDROcodone/ACETAMINOPHEN [[place] 5-325 Tablet] 1 each PO Q6H PRN #30 tablet PRN Reason: Pain, Mild (1-3) Ibuprofen [Motrin] 800 mg PO Q8HR PRN #60 tablet PRN Reason: Pain, Mild (1-3) - Provider Discharge Summary Activity: no sex for 6 weeks, no heavy lifting 4 weeks, no strenuous exercise Diet: routine Instructions: routine Additional instructions: [] Smoking cessation referral if applicable(refer to patient education folder for contact #) [] Refer to [facility]'s [facility] Booklet Call your doctor immediately for: * Fever > 100.5 * Heavy vaginal bleeding ( >1 pad per hour) * Severe persistent headache * Shortness of breath * Reddened, hot, painful area to leg or breast * Drainage or odor from incision. * Keep incision clean and dry at all times and follow doctor's instructions regarding bathing/showering Schedule followup in 4 weeks - Follow up plan
[2018-03-16] MEDS: TORADOL IV SCH (10:06)
[2018-03-16 13:06] VITALS: BP 118/69
== END 2018-03-16 12:30 | disposition home or self-care (01) ==
LOC: OR 07:04 → OB 09:47
PROVIDERS: ADMIT Obstetrics & Gynecology; ATTEND Obstetrics & Gynecology
DX: N93.8 Other specified abnormal uterine and vaginal bleeding (principal); N83.201 Unspecified ovarian cyst, right side; E78.5 Hyperlipidemia, unspecified; I10 Essential (primary) hypertension; K21.9 Gastro-esophageal reflux disease without esophagitis
CPT/HCPCS: 36415; 58552; 64450; 80048; 84703; 85014; 85018; 85025; 86850; 86900; 86901; 88302; 88307; 96374; 96375; 96376; A4217; A4649; G0378; J0690; J1100; J1170; J1885; J2250; J2270; J2405; J2704; J2710; J7050; J7120; J7121; S2900; 88300

== ENCOUNTER 2018-04-01 09:45 | Inpatient (IN) | payer OTHER ==
[2018-04-01] MEDS ORDERED: SUBLIMAZE IV ONE ×2 (10:25→13:41)
[2018-04-01] MEDS ORDERED: NACL 0.9% 500 ML 500 ML IV ONE (10:25)
[2018-04-01] MEDS ORDERED: ZOFRAN IV ONE (10:25)
[2018-04-01] MEDS ORDERED: PEPCID IV ONE ×2 (10:25→13:33)
[2018-04-01] MEDS ORDERED: BENADRYL IV ONE (10:25)
[2018-04-01] MEDS ORDERED: SOLU-Medrol IV ONE (10:25)
--- NOTE | 2018-04-01 10:45 | Emergency Department Report ---
ED General Adult HPI - General Chief complaint: Vaginal Bleeding Stated complaint: BLEEDING MULTI CELLUAR MATERIAL Time Seen by Provider: 04/01/18 10:13 Source: patient, RN notes reviewed, old records reviewed Mode of arrival: Ambulatory Limitations: No Limitations - History of Present Illness Initial comments: This is a 48-year-old female. The patient was admitted to this hospital last month, and had a robotic total abdominal hysterectomy, with bilateral salpingo- oophorectomy, with Dr. Mcallister. Her other medical history includes gastric bypass, fibromyalgia, hypothyroidism, headache, migraine, asthma. Patient felt like she was recovering adequately from her recent surgery, and then yesterday, developed nontraumatic diffuse lower abdominal pain, which does not radiate anywhere, increased with palpation, decreased with rest, and which was associated with bloody discharge, which the patient describes as "multi- cellular material." There are no fevers that the patient is aware of, there is no vomiting, no urinary symptoms, and the patient is defecating normally. Patient reports no other symptoms. Of note, patient had a CT scan in 2017, in which she received IV contrast, developed a rash there afterwards, but no anaphylaxis, and this was resolved with Benadryl. She contacted her confidential secretary, and was instructed by Dr. eMsa to present to the emergency room today presumably for evaluation. -: Gradual Location: abdomen Radiation: non-radiation Quality: aching Consistency: constant Improves with: rest Worsens with: movement Associated Symptoms: loss of appetite, malaise, other (vaginal discharge, vaginal bleeding). denies: confusion, chest pain, cough, diaphoresis, fever/chills, headaches, nausea/vomiting, rash, seizure, shortness of breath, syncope, weakness - Related Data Home Medications Medication Instructions Recorded Confirmed Last Taken ALPRAZolam [Xanax] 2 mg PO TID 11/01/12 03/10/18 10/31/12 23:30 Duloxetine HCl [Cymbalta] 60 mg PO QDAY 11/01/12 03/10/18 10/31/12 08:00 Levothyroxine [Synthroid] 125 mcg PO QAM 11/01/12 03/10/18 10/31/12 07:00 Pregabalin [Lyrica] 150 mg PO TID 11/01/12 03/10/18 10/31/12 22:00 SUMAtriptan SUCCINATE [Imitrex] 100 mg PO PRN PRN 11/01/12 03/10/18 10/31/12 22:30 Potassium Chloride [Klor-Con 10] 10 meq PO DAILY 10/28/13 03/10/18 Unknown Sennosides/Docusate Sodium [Stool 100 mg PO DAILY 10/28/13 03/10/18 Unknown Softener Tablet] ALBUTEROL NEB's [Proventil] 2.5 mg IH TID PRN 03/10/18 03/10/18 Unknown Acyclovir [Zovirax Tab] 800 mg PO Q12H PRN 03/10/18 03/10/18 Unknown Albuterol Sulfate [Ventolin Hfa] 2 puff IH Q4H PRN 03/10/18 03/10/18 Unknown Buspirone HCl [busPIRone] 7.5 mg PO DAILY 03/10/18 03/10/18 Unknown Cetirizine HCl [All Day Allergy] 10 mg PO DAILY 03/10/18 03/10/18 Unknown Clonidine HCl [Catapres] 0.3 mg PO HS 03/10/18 03/10/18 Unknown Dicyclomine [Bentyl] 20 mg PO BID 03/10/18 03/10/18 Unknown Ergocalciferol [Vitamin D2] 1 cap PO QWEEK 03/10/18 03/10/18 Unknown FLUoxetine HCL [Fluoxetine HCl] 40 mg PO DAILY 03/10/18 03/10/18 Unknown Ferrous Sulfate [Feosol 325 MG tab] 325 mg PO TID 03/10/18 03/10/18 Unknown Fluticasone [Flonase] 1 spray NS BID 03/10/18 03/10/18 Unknown Hydrocortisone [Anusol-Hc] 30 gm RC DAILY PRN 03/10/18 03/10/18 Unknown Ibuprofen [Motrin] 800 mg PO Q8HR PRN 03/10/18 03/10/18 Unknown Lidocaine Topical 2% 30Ml 1 cream TRANSDERMA PRN PRN 03/10/18 03/10/18 Unknown [Xylocaine Topical 2% 30Ml] Montelukast [Singulair] 10 mg PO QPM 03/10/18 03/10/18 Unknown Norelgestromin/Ethin.estradiol 1 each TD QWEEK 03/10/18 03/10/18 Unknown [Xulane Patch] Ondansetron [Zofran TAB] 4 mg PO Q8HR PRN 03/10/18 03/10/18 Unknown Oxycodone HCl/Acetaminophen 1 each PO Q6HR PRN 03/10/18 03/10/18 Unknown [Percocet 10/325 mg] Propranolol [Inderal] 40 mg PO DAILY 03/10/18 03/10/18 Unknown amLODIPine [Norvasc] 10 mg PO DAILY 03/10/18 03/10/18 Unknown Previous Rx's Medication Instructions Recorded Last Taken Type HYDROcodone/ACETAMINOPHEN [[place] 1 each PO Q6H PRN #30 tablet 03/16/18 Unknown Rx 5-325 Tablet] Ibuprofen [Motrin] 800 mg PO Q8HR PRN #60 tablet 03/16/18 Unknown Rx Allergies Allergy/AdvReac Type Severity Reaction Status Date / Time contrast dye Allergy Rash, Uncoded 03/09/18 08:20 reddened skin ED Review of Systems ROS: Stated complaint: BLEEDING MULTI CELLUAR MATERIAL Other details as noted in HPI Constitutional: denies: fever Eyes: denies: vision change ENT: denies: epistaxis Respiratory: denies: cough Cardiovascular: denies: chest pain Gastrointestinal: abdominal pain Genitourinary: discharge. denies: dysuria Musculoskeletal: denies: back pain Skin: denies: lesions Neurological: denies: weakness Psychiatric: anxiety ED Past Medical Hx - Past Medical History Previous Medical History?: Yes Hx Hypertension: Yes Hx Congestive Heart Failure: No Hx Diabetes: No Hx Headaches / Migraines: Yes Hx Psychiatric Treatment: No Hx Asthma: Yes Hx COPD: No Hx HIV: No Additional medical history: hypothyroid. fibromyalgia - Surgical History Past Surgical History?: Yes Additional Surgical History: gastric bypass, SANTY - Social History Smoking Status: Never Smoker Substance Use Type: Alcohol, Marijuana, Prescribed - Medications Home Medications: Home Medications Medication Instructions Recorded Confirmed Last Taken Type ALPRAZolam [Xanax] 2 mg PO TID 11/01/12 03/10/18 10/31/12 23:30 History Duloxetine HCl [Cymbalta] 60 mg PO QDAY 11/01/12 03/10/18 10/31/12 08:00 History Levothyroxine [Synthroid] 125 mcg PO QAM 11/01/12 03/10/18 10/31/12 07:00 History Pregabalin [Lyrica] 150 mg PO TID 11/01/12 03/10/18 10/31/12 22:00 History SUMAtriptan SUCCINATE [Imitrex] 100 mg PO PRN PRN 11/01/12 03/10/18 10/31/12 22:30 History Potassium Chloride [Klor-Con 10] 10 meq PO DAILY 10/28/13 03/10/18 Unknown History Sennosides/Docusate Sodium [Stool 100 mg PO DAILY 10/28/13 03/10/18 Unknown History Softener Tablet] ALBUTEROL NEB's [Proventil] 2.5 mg IH TID PRN 03/10/18 03/10/18 Unknown History Acyclovir [Zovirax Tab] 800 mg PO Q12H PRN 03/10/18 03/10/18 Unknown History Albuterol Sulfate [Ventolin Hfa] 2 puff IH Q4H PRN 03/10/18 03/10/18 Unknown History Buspirone HCl [busPIRone] 7.5 mg PO DAILY 03/10/18 03/10/18 Unknown History Cetirizine HCl [All Day Allergy] 10 mg PO DAILY 03/10/18 03/10/18 Unknown History Clonidine HCl [Catapres] 0.3 mg PO HS 03/10/18 03/10/18 Unknown History Dicyclomine [Bentyl] 20 mg PO BID 03/10/18 03/10/18 Unknown History Ergocalciferol [Vitamin D2] 1 cap PO QWEEK 03/10/18 03/10/18 Unknown History FLUoxetine HCL [Fluoxetine HCl] 40 mg PO DAILY 03/10/18 03/10/18 Unknown History Ferrous Sulfate [Feosol 325 MG tab] 325 mg PO TID 03/10/18 03/10/18 Unknown History Fluticasone [Flonase] 1 spray NS BID 03/10/18 03/10/18 Unknown History Hydrocortisone [Anusol-Hc] 30 gm RC DAILY PRN 03/10/18 03/10/18 Unknown History Ibuprofen [Motrin] 800 mg PO Q8HR PRN 03/10/18 03/10/18 Unknown History Lidocaine Topical 2% 30Ml 1 cream TRANSDERMA PRN PRN 03/10/18 03/10/18 Unknown History [Xylocaine Topical 2% 30Ml] Montelukast [Singulair] 10 mg PO QPM 03/10/18 03/10/18 Unknown History Norelgestromin/Ethin.estradiol 1 each TD QWEEK 03/10/18 03/10/18 Unknown History [Xulane Patch] Ondansetron [Zofran TAB] 4 mg PO Q8HR PRN 03/10/18 03/10/18 Unknown History Oxycodone HCl/Acetaminophen 1 each PO Q6HR PRN 03/10/18 03/10/18 Unknown History [Percocet 10/325 mg] Propranolol [Inderal] 40 mg PO DAILY 03/10/18 03/10/18 Unknown History amLODIPine [Norvasc] 10 mg PO DAILY 03/10/18 03/10/18 Unknown History HYDROcodone/ACETAMINOPHEN [[place] 1 each PO Q6H PRN #30 tablet 03/16/18 Unknown Rx 5-325 Tablet] Ibuprofen [Motrin] 800 mg PO Q8HR PRN #60 tablet 03/16/18 Unknown Rx ED Physical Exam - General Limitations: No Limitations General appearance: alert, anxious - Head Head exam: Present: atraumatic, normocephalic - Eye Eye exam: Present: normal appearance, EOMI. Absent: nystagmus - ENT ENT exam: Present: normal exam, normal orophraynx, mucous membranes moist, normal external ear exam - Neck Neck exam: Present: normal inspection, full ROM. Absent: tenderness, meningismus - Respiratory Respiratory exam: Present: normal lung sounds bilaterally. Absent: respiratory distress - Cardiovascular Cardiovascular Exam: Present: regular rate, normal rhythm, normal heart sounds. Absent: bradycardia, tachycardia, irregular rhythm, systolic murmur, diastolic murmur, rubs, gallop - GI/Abdominal GI/Abdominal exam: Present: soft, tenderness, other (there is mild abdominal tenderness, with no rebound, guarding or peritoneal signs. Surgical incision sites appear to be healing well, with no redness, pus or streaking). Absent: distended, guarding, rebound, rigid, pulsatile mass - External exam: Present: normal external exam, other (there is scant reddish- brown discharge noted. No obvious lacerations noted.) Speculum exam: Present: other (chaperoned by nurse Isabel Govea) - Extremities Exam Extremities exam: Present: normal inspection, full ROM. Absent: pedal edema, joint swelling - Back Exam Back exam: Present: normal inspection, full ROM. Absent: tenderness, CVA tenderness (R), paraspinal tenderness, vertebral tenderness - Neurological Exam Neurological exam: Present: alert, CN II-XII intact, other (Extraocular movements intact. Tongue midline. No facial droop. Facial sensation intact to light touch in the V1, V2, V3 distribution bilaterally. 5 and 5 strength in 4 extremities.. Sensation is intact to light touch in 4 extremities.). Absent: motor sensory deficit - Psychiatric Psychiatric exam: Present: normal affect, normal mood - Skin Skin exam: Present: warm, dry, intact, normal color. Absent: rash ED Course Vital Signs 04/01/18 04/01/18 04/01/18 09:49 10:10 10:44 Temperature 98.6 F Pulse Rate 66 61 Respiratory 18 12 20 Rate Blood Pressure 110/66 O2 Sat by Pulse 99 100 Oximetry 04/01/18 04/01/18 04/01/18 11:00 13:01 13:51 Temperature Pulse Rate 57 L 64 Respiratory 14 19 18 Rate Blood Pressure 112/64 109/70 O2 Sat by Pulse 98 97 Oximetry 04/01/18 04/01/18 14:01 15:01 Temperature Pulse Rate 61 Respiratory 17 Rate Blood Pressure 108/70 105/64 O2 Sat by Pulse 98 96 Oximetry - Reevaluation(s) Reevaluation #1: 04/01/18 10:43 Differential diagnosis, including but not limited to: Intra-abdominal infection, intra-abdominal bleeding, acute on chronic abdominal pain, nonspecific vaginal discharge Assessment and plan: 48-year-old female who is approximately 2-1/2 weeks status post robotic total hysterectomy. The patient is afebrile with reassuring vital signs. We will chief the patient's pain and symptoms. We will obtain a CT scan with IV, oral contrast. Patient has indicated no true anaphylactic reaction, and the patient will be medicated with IV Benadryl, Pepcid, Solu-Medrol. Importance of acquisition of CT scan with IV, oral contrast was discussed with the patient, who verbalized understanding, especially given her complex abdominal surgical history. No obvious vaginal bleeding noted on my exam, however nonspecific discharge is noted. We will discuss with her covering confidential secretary once her test results have resulted. We will reassess after her initial data points. Her vaginal discharge and in of itself does not appear to represent an emergent condition. Reevaluation #2: 04/01/18 10:45 Of note, patient has indicated that she is taking ibuprofen. I have instructed the patient to discontinue NSAID consumption given her history of gastric bypa ss. She will need to specifically follow up with the bariatric surgeon for clearance to reinitiate NSAID therapy. Reevaluation #3: 04/01/18 12:21 Laboratory studies reviewed and are appreciated. The patient's is currently in no acute distress. Awaiting CT scan. Patient has tolerated oral contrast without difficulty. Lactic acid within normal limits. Reevaluation #4: 04/01/18 15:41 CT scan suggests a 5 x 5 x 2.5 x 2.7 cm wall fluid collection with air, superior to the vaginal cuff, concerning for abscess. Postsurgical changes noted. No other acute findings noted. Empiric antibiotics ordered. We will discuss with gynecology on-call to determine further management. Reevaluation #5: 04/01/18 16:44 Numerous phone calls have been made to APPRAISAL COORDINATOR. The covering confidential secretary was detained secondary to multiple emergency sections. I have advised the nurse to now give antibiotics, as we do not want to delay care further. Covering confidential secretary, Dr. Sadia Mesa, has called me back, and she except the pat ient to the gynecologic service. Patient was informed of CT scan findings. 04/01/18 16:45 ED Medical Decision Making - Lab Data Result diagrams: 04/01/18 10:29 04/01/18 10:32 Vital Signs 04/01/18 04/01/18 09:49 10:44 Temperature 98.6 F Pulse Rate 66 Respiratory 18 20 Rate Blood Pressure 110/66 O2 Sat by Pulse 99 Oximetry Lab Results 04/01/18 04/01/18 04/01/18 Range/Units 10:29 10:32 10:32 WBC 11.3 H (4.5-11.0) K/mm3 RBC 3.47 L (3.65-5.03) M/mm3 Hgb 10.9 (10.1-14.3) gm/dl Hct 34.4 (30.3-42.9) % MCV 99 H (79-97) fl MCH 31 (28-32) pg MCHC 32 (30-34) % RDW 13.8 (13.2-15.2) % Plt Count 485 H (140-440) K/mm3 Lymph % (Auto) 14.4 (13.4-35.0) % [place] % (Auto) 6.0 (0.0-7.3) % Eos % (Auto) 2.5 (0.0-4.3) % Baso % (Auto) 1.1 (0.0-1.8) % Lymph # 1.6 (1.2-5.4) K/mm3 [place] # 0.7 (0.0-0.8) K/mm3 Eos # 0.3 (0.0-0.4) K/mm3 Baso # 0.1 (0.0-0.1) K/mm3 Seg Neutrophils % 76.0 H (40.0-70.0) % Seg Neutrophils # 8.6 H (1.8-7.7) K/mm3 PT (12.2-14.9) Sec. INR (0.87-1.13) Sodium 139 (137-145) mmol/L Potassium 3.8 (3.6-5.0) mmol/L Chloride 101.8 (98-107) mmol/L Carbon Dioxide 26 (22-30) mmol/L Anion Gap 15 mmol/L BUN 8 (7-17) mg/dL Creatinine 0.5 L (0.7-1.2) mg/dL Estimated GFR > 60 ml/min BUN/Creatinine Ratio 16 % Glucose 86 (65-100) mg/dL Lactic Acid 0.80 (0.7-2.0) mmol/L Calcium 8.6 (8.4-10.2) mg/dL Total Bilirubin 0.40 (0.1-1.2) mg/dL AST 15 (5-40) units/L ALT 15 (7-56) units/L Alkaline Phosphatase 87 (35-129) units/L Total Protein 6.4 (6.3-8.2) g/dL Albumin 3.7 L (3.9-5) g/dL Albumin/Globulin Ratio 1.4 % Lipase 43 (13-60) units/L Blood Type Antibody Screen 04/01/18 04/01/18 Range/Units 10:32 10:32 WBC (4.5-11.0) K/mm3 RBC (3.65-5.03) M/mm3 Hgb (10.1-14.3) gm/dl Hct (30.3-42.9) % MCV (79-97) fl MCH (28-32) pg MCHC (30-34) % RDW (13.2-15.2) % Plt Count (140-440) K/mm3 Lymph % (Auto) (13.4-35.0) % [place] % (Auto) (0.0-7.3) % Eos % (Auto) (0.0-4.3) % Baso % (Auto) (0.0-1.8) % Lymph # (1.2-5.4) K/mm3 [place] # (0.0-0.8) K/mm3 Eos # (0.0-0.4) K/mm3 Baso # (0.0-0.1) K/mm3 Seg Neutrophils % (40.0-70.0) % Seg Neutrophils # (1.8-7.7) K/mm3 PT 14.1 (12.2-14.9) Sec. INR 1.05 (0.87-1.13) Sodium (137-145) mmol/L Potassium (3.6-5.0) mmol/L Chloride (98-107) mmol/L Carbon Dioxide (22-30) mmol/L Anion Gap mmol/L BUN (7-17) mg/dL Creatinine (0.7-1.2) mg/dL Estimated GFR ml/min BUN/Creatinine Ratio % Glucose (65-100) mg/dL Lactic Acid (0.7-2.0) mmol/L Calcium (8.4-10.2) mg/dL Total Bilirubin (0.1-1.2) mg/dL AST (5-40) units/L ALT (7-56) units/L Alkaline Phosphatase (35-129) units/L Total Protein (6.3-8.2) g/dL Albumin (3.9-5) g/dL Albumin/Globulin Ratio % Lipase (13-60) units/L Blood Type A POSITIVE Antibody Screen Negative Vital Signs (72 hours) 04/01/18 04/01/18 09:49 10:44 Temperature 98.6 F Pulse Rate 66 Respiratory 18 20 Rate Blood Pressure 110/66 O2 Sat by Pulse 99 Oximetry Vital Signs 04/01/18 04/01/18 09:49 10:44 Temperature 98.6 F Pulse Rate 66 Respiratory 18 20 Rate Blood Pressure 110/66 O2 Sat by Pulse 99 Oximetry - Radiology Data Radiology results: report reviewed, image reviewed Referring Physician: NATHALIE ORO Patient Name: LISA LUTZ Date of : 1970 Sex: Female Report Date: 2018-04-01 Report Status: Finalized [facility] [address] [place] [address] Cat Scan Report Signed Patient: LISA LUTZ MR#: [id number] : 1970 Acct:[id number] Age/Sex: 48 / F ADM Date: 04/01/18 Loc: ED Attending Dr: Ordering Physician: NATHALIE ORO MD Date of Service: 04/01/18 Procedure(s): CT abdomen pelvis w con Accession Number(s): [id number] cc: NATHALIE ORO MD FINAL REPORT EXAM: CT ABDOMEN PELVIS W CON HISTORY: Vaginal bleeding after dot hysterectomy COMPARISON: None. TECHNIQUE: Multiple contiguous axial images were obtained from the lung bases to the pubic symphysis after administration of IV contrast. Reformatted sagittal and coronal images were available for review F INDINGS: Lung bases: Minimal dependent atelectasis at the bilateral lung bases. Visualized heart and mediastinum: Normal. Liver: Normal. Spleen: Normal. Pancreas: Normal. Gallbladder and Biliary Tree: No calcified gallstones. No biliary ductal dilatation. Adrenal glands: Normal. Kidneys: Symmetric e nhancement to both kidneys. No hydronephrosis. Bladder: Normal. Pelvic organs: There has been a recent hysterectomy. Superior to the vaginal cuff, there is an irregular, 5.5 x 2.5 x 2.7 centimeter (transverse by AP by craniocaudal dimension), thick-walled fluid collection with internal foci of air, concerning for abscess. Bowel: Postsurgical changes from gastric bypass with Good-en-Y. No focal wall thickening. No evidence of obstruction. Large amount of stool within the colon concerning for constipation. Normal appendix without surrounding inflammatory change. Peritoneum: No significant mesenteric adenopathy. No free air or free fluid. Vasculature: Abdominal aorta is normal in caliber without evidence of aneurysm. Normal appearance of the portal venous system and the inferior vena cava. Bones and soft tissues: No suspicious osseous lesions. No acute fracture or dislocation. Small, fat containing periumbilical hernia. Mild stranding of the subcutaneous tissues of the anterior abdomen, likely the site of prior trocar placement. IMPRESSION: 5.5 x 2.5 x 2.7 centimeter thick-walled fluid and air collection superior to the vaginal cuff, concerning for abscess. Transcribed By: MAURICE Dictated By: FELICIA LIN MD Electronically Authenticated By: FELICIA LIN MD Signed Date/Time: 04/01/18 1617 Critical care attestation.: If time is entered above; I have spent that time in minutes in the direct care of this critically ill patient, excluding procedure time. ED Disposition Clinical Impression: Postoperative abscess Disposition: DC-09 OP ADMIT IP TO THIS HOSP Is pt being admited?: Yes Condition: Good Additional Instructions: Do not take Motrin, ibuprofen, Naprosyn, Aleve, NSAIDs. Did not take metformin for the next 48 hours, if patient takes this medication. Referrals: MIGUELANGEL JUAREZ MD [Primary Care Provider] - 3-5 Days
[2018-04-01 10:53] LABS: Basophils # (Auto) 0.1 K/mm3 (0.0-0.1); Basophils % (Auto) 1.1 % (0.0-1.8); Eosinophils # (Auto) 0.3 K/mm3 (0.0-0.4); Eosinophils % (Auto) 2.5 % (0.0-4.3); Hematocrit 34.4 % (30.3-42.9); Hemoglobin 10.9 gm/dl (10.1-14.3); Lymphocytes # (Auto) 1.6 K/mm3 (1.2-5.4); Lymphocytes % (Auto) 14.4 % (13.4-35.0); Mean Corpuscular HGB Conc 32 % (30-34); Mean Corpuscular Volume 99 fl (79-97); Monocytes # (Auto) 0.7 K/mm3 (0.0-0.8); Platelet Count 485 K/mm3 (140-440); Red Blood Count 3.47 M/mm3 (3.65-5.03); Red Cell Distribution Width 13.8 % (13.2-15.2)
[2018-04-01] MEDS ORDERED: NACL 0.9% 1000 ML 1,000 ML ONE (11:00)
[2018-04-01 11:04] LABS: INR 1.05 (0.87-1.13)
[2018-04-01 11:13] LABS: Alanine Aminotransferase 15 units/L (7-56); Albumin 3.7 g/dL (3.9-5); BUN/Creatinine Ratio 16; Blood Urea Nitrogen 8 mg/dL (7-17); Calcium 8.6 mg/dL (8.4-10.2); Hemolysis Index 2
[2018-04-01] MEDS ORDERED: BENADRYL ONE (13:33)
[2018-04-01] MEDS ORDERED: SOLU-Medrol ONE (13:33)
[2018-04-01] MEDS ORDERED: SUBLIMAZE ONE (13:45)
--- NOTE | 2018-04-01 15:34 | Cat Scan Report ---
FINAL REPORT EXAM: CT ABDOMEN PELVIS W CON HISTORY: Vaginal bleeding after dot hysterectomy COMPARISON: None. TECHNIQUE: Multiple contiguous axial images were obtained from the lung bases to the pubic symphysis after administration of IV contrast. Reformatted sagittal and coronal images were available for revi ew FINDINGS: Lung bases: Minimal dependent atelectasis at the bilateral lung bases. Visualized heart and mediastinum: Normal. Liver: Normal. Spleen: Normal. Pancreas: Normal. Gallbladder and Biliary Tree: No calcified gallstones. No biliary ductal dilatation. Adrenal glands: Normal. Kidneys: Symmetric enhancement to both kidneys. No hydronephrosis. Bladder: Normal. Pelvic organs: There has been a recent hysterectomy. Superior to the vaginal cuff, there is an irregu lar, 5.5 x 2.5 x 2.7 centimeter (transverse by AP by craniocaudal dimension), thick-walled fluid teresa ection with internal foci of air, concerning for abscess. Bowel: Postsurgical changes from gastric bypass with Good-en-Y. No focal wall thickening. No evidence of obstruction. Large amount of stool within the colon concerning for constipation. Normal appendix without surrounding inflammatory change. Peritoneum: No significant mesenteric adenopathy. No free air or free fluid. Vasculature: Abdominal aorta is normal in caliber without evidence of aneurysm. Normal appearance of the portal venous system and the inferior vena cava. Bones and soft tissues: No suspicious osseous lesions. No acute fracture or dislocation. Small, fat c ontaining periumbilical hernia. Mild stranding of the subcutaneous tissues of the anterior abdomen, l ikely the site of prior trocar placement. IMPRESSION: 5.5 x 2.5 x 2.7 centimeter thick-walled fluid and air collection superior to the vaginal cuff, concer costa for abscess.
[2018-04-01] MEDS ORDERED: LEVAQUIN 500MG/100ML 500 MG/100 ML BAG IV ONE (15:40)
[2018-04-01] MEDS ORDERED: FLAGYL 500 MG/100 ML 500 MG/100 ML BAG IV ONE (15:40)
[2018-04-01] MEDS ORDERED: ZOFRAN IV PRN (19:59)
[2018-04-01] MEDS ORDERED: REGLAN IV PRN (19:59)
[2018-04-01] MEDS ORDERED: TYLENOL PO PRN (19:59)
[2018-04-01] MEDS ORDERED: MORPHINE IV PRN ×2 (19:59)
[2018-04-01] MEDS ORDERED: PHENERGAN PR PRN (19:59)
[2018-04-01] MEDS ORDERED: ZOFRAN ODT PO PRN (19:59)
[2018-04-01] MEDS ORDERED: MILK OF MAGNESIA PO PRN (19:59)
[2018-04-01] MEDS ORDERED: NARCAN 0.4 MG/1 ML IV PRN (19:59)
[2018-04-01] MEDS ORDERED: DULCOLAX PR PRN (19:59)
[2018-04-01] MEDS: PERCOCET 5/325 PO PRN (20:47)
[2018-04-01] MEDS: D5LR 1,000 ML IV SCH (20:47)
[2018-04-01] MEDS: FLAGYL 500 MG/100 ML 500 MG/100 ML BAG IV SCH (21:36)
[2018-04-01] MEDS ORDERED: AMBIEN PO PRN (21:40)
--- NOTE | 2018-04-01 21:45 | History and Physical Report ---
History of Present Illness Date of examination: 04/01/18 Date of admission: 04/01/18 16:46 Chief complaint: vaginal bleeding and abdominal pain History of present illness: This is a 48-year-old female. The patient was admitted to this hospital last month, and had a robotic total abdominal hysterectomy, with bilateral salpingo- oophorectomy, with Dr. Mcallister. Her other medical history includes gastric bypass, fibromyalgia, hypothyroidism, headache, migraine, asthma. Patient felt like she was recovering adequately from her recent surgery, and then yesterday, developed nontraumatic diffuse lower abdominal pain, which does not radiate anywhere, increased with palpation, decreased with rest, and which was associated with bloody discharge, which the patient describes as "multi- cellular material." There are no fevers that the patient is aware of, there is no vomiting, no urinary symptoms, and the patient is defecating normally. Patient reports no other symptoms. Of note, patient had a CT scan in 2016, in which she received IV contrast, developed a rash there afterwards, but no anaphylaxis, and this was resolved with Benadryl. I spoke with the patient yesterday and continued pain and bleeding instructed patient to come to [facility] for evaluation Past History Past Medical History: hypertension, thyroid disease, fibromyalgia Past Surgical History: gastric bypass Family/Genetic History: cancer Social history: . denies: smoking, alcohol abuse, prescription drug abuse - Obstetrical History : 5 Medications and Allergies Allergies Allergy/AdvReac Type Severity Reaction Status Date / Time contrast dye Allergy Rash, Uncoded 03/09/18 08:20 reddened skin Home Medications Medication Instructions Recorded Confirmed Last Taken Type ALPRAZolam [Xanax] 2 mg PO TID 11/01/12 03/10/18 10/31/12 23:30 History Duloxetine HCl [Cymbalta] 60 mg PO QDAY 11/01/12 03/10/18 10/31/12 08:00 History Levothyroxine [Synthroid] 125 mcg PO QAM 11/01/12 03/10/18 10/31/12 07:00 History Pregabalin [Lyrica] 150 mg PO TID 11/01/12 03/10/18 10/31/12 22:00 History SUMAtriptan SUCCINATE [Imitrex] 100 mg PO PRN PRN 11/01/12 03/10/18 10/31/12 22:30 History Potassium Chloride [Klor-Con 10] 10 meq PO DAILY 10/28/13 03/10/18 Unknown History Sennosides/Docusate Sodium [Stool 100 mg PO DAILY 10/28/13 03/10/18 Unknown History Softener Tablet] ALBUTEROL NEB's [Proventil] 2.5 mg IH TID PRN 03/10/18 03/10/18 Unknown History Acyclovir [Zovirax Tab] 800 mg PO Q12H PRN 03/10/18 03/10/18 Unknown History Albuterol Sulfate [Ventolin Hfa] 2 puff IH Q4H PRN 03/10/18 03/10/18 Unknown History Buspirone HCl [busPIRone] 7.5 mg PO DAILY 03/10/18 03/10/18 Unknown History Cetirizine HCl [All Day Allergy] 10 mg PO DAILY 03/10/18 03/10/18 Unknown History Clonidine HCl [Catapres] 0.3 mg PO HS 03/10/18 03/10/18 Unknown History Dicyclomine [Bentyl] 20 mg PO BID 03/10/18 03/10/18 Unknown History Ergocalciferol [Vitamin D2] 1 cap PO QWEEK 03/10/18 03/10/18 Unknown History FLUoxetine HCL [Fluoxetine HCl] 40 mg PO DAILY 03/10/18 03/10/18 Unknown History Ferrous Sulfate [Feosol 325 MG tab] 325 mg PO TID 03/10/18 03/10/18 Unknown History Fluticasone [Flonase] 1 spray NS BID 03/10/18 03/10/18 Unknown History Hydrocortisone [Anusol-Hc] 30 gm RC DAILY PRN 03/10/18 03/10/18 Unknown History Ibuprofen [Motrin] 800 mg PO Q8HR PRN 03/10/18 03/10/18 Unknown History Lidocaine Topical 2% 30Ml 1 cream TRANSDERMA PRN PRN 03/10/18 03/10/18 Unknown History [Xylocaine Topical 2% 30Ml] Montelukast [Singulair] 10 mg PO QPM 03/10/18 03/10/18 Unknown History Norelgestromin/Ethin.estradiol 1 each TD QWEEK 03/10/18 03/10/18 Unknown History [Xulane Patch] Ondansetron [Zofran TAB] 4 mg PO Q8HR PRN 03/10/18 03/10/18 Unknown History Oxycodone HCl/Acetaminophen 1 each PO Q6HR PRN 03/10/18 03/10/18 Unknown History [Percocet 10/325 mg] Propranolol [Inderal] 40 mg PO DAILY 03/10/18 03/10/18 Unknown History amLODIPine [Norvasc] 10 mg PO DAILY 03/10/18 03/10/18 Unknown History HYDROcodone/ACETAMINOPHEN [[place] 1 each PO Q6H PRN #30 tablet 03/16/18 Unknown Rx 5-325 Tablet] Ibuprofen [Motrin] 800 mg PO Q8HR PRN #60 tablet 03/16/18 Unknown Rx Active Meds: Active Medications Acetaminophen (Tylenol) 650 mg PO Q4H PRN PRN Reason: Pain, Mild (1-3) Amlodipine Besylate (Norvasc) 10 mg PO QDAY AMY Bisacodyl (Dulcolax) 10 mg NM QDAY PRN PRN Reason: Constip unreliev by MOM/or NPO Dextrose/Lactated Ringer's (D5lr) 1,000 mls @ 125 mls/hr IV DIRECT AMY Last Admin: 04/01/18 20:47 Dose: 125 mls/hr Documented by: Ceftriaxone Sodium (Rocephin/Ns 2 Gm/100 Ml) 2 gm in 100 mls @ 200 mls/hr IV Q24HR AMY; Protocol Metronidazole (Flagyl 500 Mg/100 Ml) 500 mg in 100 mls @ 100 mls/hr IV Q8HR AMY; Protocol Last Admin: 04/01/18 21:36 Dose: 100 mls/hr Documented by: Magnesium Hydroxide (Milk Of Magnesia) 30 ml PO Q4H PRN PRN Reason: Constipation Metoclopramide HCl (Reglan) 10 mg IV Q6H PRN PRN Reason: Nausea And Vomiting Morphine Sulfate (Morphine) 2 mg IV Q4H PRN PRN Reason: Pain, Moderate (4-6) Morphine Sulfate (Morphine) 4 mg IV Q4H PRN PRN Reason: Pain , Severe (7-10) Naloxone HCl (Narcan 0.4 Mg/1 Ml) 0.1 mg IV Q2MIN PRN PRN Reason: Res Rate </= 8 or 02 SAT < 92% Ondansetron HCl (Zofran) 4 mg IV Q8H PRN PRN Reason: Nausea And Vomiting Ondansetron HCl (Zofran Odt) 4 mg PO Q8H PRN PRN Reason: Nausea And Vomiting Oxycodone/Acetaminophen (Percocet 5/325) 2 tab PO Q6H PRN PRN Reason: Pain, Moderate (4-6) Last Admin: 04/01/18 20:47 Dose: 2 tab Documented by: Promethazine HCl (Phenergan) 25 mg NM Q6H PRN PRN Reason: Nausea And Vomiting Zolpidem Tartrate (Ambien) 10 mg PO QHS PRN PRN Reason: Insomnia Review of Systems All systems: negative Genitourinary: vaginal bleeding, pelvic pain - Vital Signs Vital signs: Vital Signs Temp Pulse Resp BP Pulse Ox 98.6 F 66 18 110/66 99 04/01/18 09:49 04/01/18 09:49 04/01/18 09:49 04/01/18 09:49 04/01/18 09:49 Temp Pulse Resp BP Pulse Ox 97.7 F 71 18 101/54 99 04/01/18 18:54 04/01/18 18:54 04/01/18 20:47 04/01/18 18:54 04/01/18 18:30 - Physical Exam Breasts: Positive: normal Cardiovascular: Regular rate, Normal S1 Lungs: Positive: Clear to auscultation, Normal air movement Abdomen: Positive: normal appearance, soft, other (healed port sites). Negative: distention, tenderness, guarding Genitourinary (Female): Positive: normal external genitalia Extremities: Positive: normal Deep Tendon Reflex Grade: Normal +2 Results Result Diagrams: 04/01/18 10:29 04/01/18 10:32 Abnormal lab results 04/01/18 04/01/18 Range/Units 10:29 10:32 WBC 11.3 H (4.5-11.0) K/mm3 RBC 3.47 L (3.65-5.03) M/mm3 MCV 99 H (79-97) fl Plt Count 485 H (140-440) K/mm3 Seg Neutrophils % 76.0 H (40.0-70.0) % Seg Neutrophils # 8.6 H (1.8-7.7) K/mm3 Creatinine 0.5 L (0.7-1.2) mg/dL Albumin 3.7 L (3.9-5) g/dL All other labs normal. CT scan - abdomen: report reviewed Assessment and Plan A/P HD#1 vaginal cuff abscess started on abx rocephin and flagyl s/p levoquin and flgyl consulted with IR consulted with ID close monitor of VS CBC in am cultures blood and urine sent
[2018-04-02] MEDS: PERCOCET 5/325 PO PRN ×4 (04:13→23:02)
[2018-04-02] MEDS: FLAGYL 500 MG/100 ML 500 MG/100 ML BAG IV SCH ×3 (05:10→23:01)
[2018-04-02] MEDS: ROCEPHIN/NS 2 GM/100 ML 2 GM/100 ML BAG IV SCH (06:26)
[2018-04-02 08:13] LABS: Basophils # (Auto) 0.1 K/mm3 (0.0-0.1); Basophils % (Auto) 0.4 % (0.0-1.8); Lymphocytes # (Auto) 1.3 K/mm3 (1.2-5.4); Lymphocytes % (Auto) 7.7 % (13.4-35.0); Mean Corpuscular HGB Conc 33 % (30-34); Mean Corpuscular Volume 101 fl (79-97); Monocytes # (Auto) 0.6 K/mm3 (0.0-0.8); Monocytes % (Auto) 3.8 % (0.0-7.3); Platelet Count 457 K/mm3 (140-440); Red Blood Count 3.38 M/mm3 (3.65-5.03); Red Cell Distribution Width 13.5 % (13.2-15.2)
[2018-04-02] MEDS: NORVASC PO SCH (09:28)
--- NOTE | 2018-04-02 11:44 | Progress Note ---
Assessment and Plan - Patient Problems (1) Abscess of vagina Current Visit: Yes Status: Acute Plan to address problem: continue IV abx awaiting evaluation for I&D Subjective - Subjective Date of service: 04/02/18 Interval history: Patient without any significant complaints. Radiology has been consulted for evaluation for possible drainage of cuff abscess. Patient remains afebrile. Pain is controlled Patient reports: appetite normal, voiding normally, pain well controlled Objective - Vital Signs Latest vital signs: Vital Signs Temp Pulse Pulse Resp Resp BP BP 04/02/18 07:25 97.6 F 50 L 18 118/64 04/02/18 06:21 98.2 F 57 L 18 107/59 04/02/18 04:13 18 04/02/18 00:25 97.6 F 59 L 18 103/53 04/01/18 20:55 98.4 F 82 18 110/55 04/01/18 20:47 18 04/01/18 20:11 18 04/01/18 18:54 97.7 F 71 18 101/54 04/01/18 18:30 76 04/01/18 16:50 60 18 100/52 04/01/18 15:01 105/64 04/01/18 14:01 61 17 108/70 04/01/18 13:51 18 04/01/18 13:01 64 19 109/70 Pulse Ox 04/02/18 07:25 04/02/18 06:21 04/02/18 04:13 04/02/18 00:25 97 04/01/18 20:55 98 04/01/18 20:47 04/01/18 20:11 04/01/18 18:54 04/01/18 18:30 99 04/01/18 16:50 98 04/01/18 15:01 96 04/01/18 14:01 98 04/01/18 13:51 04/01/18 13:01 97 Intake and Output 04/01/18 04/02/18 04/02/18 22:59 06:59 14:59 Intake Total 260 360 0 Output Total 1300 Balance 260 -940 0 Intake: IV 110 FLAGYL 500 MG/100 ML 500 100 mg In 100 ml @ 100 mls/hr IV Q8HR [facility] Rx#: [id number] Left Forearm 10 Oral 150 0 Intake, Free Water 360 Output: Urine 1300 Void 1300 Other: Total, Intake Amount 150 0 Total, Output Amount 900 # Voids Void 1 2 Weight 164 kg - Labs Labs: Abnormal lab results 04/02/18 Range/Units 07:19 WBC 16.6 H (4.5-11.0) K/mm3 RBC 3.38 L (3.65-5.03) M/mm3 MCV 101 H (79-97) fl MCH 33 H (28-32) pg Plt Count 457 H (140-440) K/mm3 Lymph % (Auto) 7.7 L (13.4-35.0) % Seg Neutrophils % 88.1 H (40.0-70.0) % Seg Neutrophils # 14.6 H (1.8-7.7) K/mm3
[2018-04-02] MEDS: D5LR 1,000 ML IV SCH (14:14)
--- NOTE | 2018-04-02 15:43 | Consultation ---
History of Present Illness - Reason for Consult Consult date: 04/02/18 Vaginal Cuff Abscess Requesting physician: CLAUDIA HO - History of Present Illness This patient is a 48-year-old female with a past medical history of gastric bypass, fibromyalgia, hypothyroidism, headache, migraine and asthma. The patient was admitted to the hospital on 03/15/18 and had a robotic total abdominal hysterectomy, with bilateral salpingo-oophorectomy, with Dr. Mcallister.. The patient felt like she was recovering adequately from recent surgery until yesterday when she developed nontraumatic diffuse lower abdominal pain with associated bloody discharge, described as "mulitcellular materal". There are no fevers that the patient is aware of, there is no vomiting, no urinary symptoms, and the patient is defecating normally. Patient reports no other symptoms. On admission WBC 11.3, Creatinine 0.5, lactic Acid 0.80, Temperature 98.6, HR 66, BP 100/52. CT of the abdomen and pelvis showed 5.5 x 2.5 x 2.7 centimeter thick-walled fluid and air collection superior to the vaginal cuff, concerning for abscess. Blood cultures were drawn and show no growth to date. Review of Systems: General: no fever, chills, nightsweats, unintentional weight change, or change in appetite Cutaneous: no rash, pruritus Head: no headaches or injury Eyes: no changes in vision, eye pain, double vision Ears: no ear pain, ear discharge, ringing or hearing loss Nose: no nose bleeding, stuffiness Mouth & throat: no bleeding gums, no horseness, no dental problems, or swollen glands Neck: no pain, node enlargement/lumps, tyroid enlargement or tenderness Respiratory: no cough, wheezing, sputum, hemoptysis, pleuritic chest pain Cardiovascular: no chest pain, leg edema, cyanosis, RAMEY, orthopnea Musculoskeletal: no decreased joint motion, bone or joint pain, joint swelling, muscle aches Gastrointestinal: no nausea, vomiting, hematemesis, diarrhea, constipation + LLQ pain Genitourinary/Reproductive: no frequent urination, dysuria, hematuria, inco ntinence Neurogical: no seizures, no headaches, no weakness, no paresthesias, no loss of speech or vision; no memory loss, no vertigo, no tremors, no numbness Psychiatric: stable mood; no excessive anxiety, sadness or moodiness Past History Social history: . denies: smoking, alcohol abuse, prescription drug abuse Medications and Allergies Allergies Allergy/AdvReac Type Severity Reaction Status Date / Time contrast dye Allergy Rash, Uncoded 03/09/18 08:20 reddened skin Home Medications Medication Instructions Recorded Confirmed Last Taken Type ALPRAZolam [Xanax] 2 mg PO TID 11/01/12 03/10/18 10/31/12 23:30 History Duloxetine HCl [Cymbalta] 60 mg PO QDAY 11/01/12 03/10/18 10/31/12 08:00 History Levothyroxine [Synthroid] 125 mcg PO QAM 11/01/12 03/10/18 10/31/12 07:00 History Pregabalin [Lyrica] 150 mg PO TID 11/01/12 03/10/18 10/31/12 22:00 History SUMAtriptan SUCCINATE [Imitrex] 100 mg PO PRN PRN 11/01/12 03/10/18 10/31/12 22:30 History Potassium Chloride [Klor-Con 10] 10 meq PO DAILY 10/28/13 03/10/18 Unknown Histo ry Sennosides/Docusate Sodium [Stool 100 mg PO DAILY 10/28/13 03/10/18 Unknown History Softener Tablet] ALBUTEROL NEB's [Proventil] 2.5 mg IH TID PRN 03/10/18 03/10/18 Unknown History Acyclovir [Zovirax Tab] 800 mg PO Q12H PRN 03/10/18 03/10/18 Unknown History Albuterol Sulfate [Ventolin Hfa] 2 puff IH Q4H PRN 03/10/18 03/10/18 Unknown History Buspirone HCl [busPIRone] 7.5 mg PO DAILY 03/10/18 03/10/18 Unknown History Cetirizine HCl [All Day Allergy] 10 mg PO DAILY 03/10/18 03/10/18 Unknown History Clonidine HCl [Catapres] 0.3 mg PO HS 03/10/18 03/10/18 Unknown History Dicyclomine [Bentyl] 20 mg PO BID 03/10/18 03/10/18 Unknown History Ergocalciferol [Vitamin D2] 1 cap PO QWEEK 03/10/18 03/10/18 Unknown History FLUoxetine HCL [Fluoxetine HCl] 40 mg PO DAILY 03/10/18 03/10/18 Unknown History Ferrous Sulfate [Feosol 325 MG tab] 325 mg PO TID 03/10/18 03/10/18 Unknown History Fluticasone [Flonase] 1 spray NS BID 03/10/18 03/10/18 Unknown History Hydrocortisone [Anusol-Hc] 30 gm RC DAILY PRN 03/10/18 03/10/18 Unknown History Ibuprofen [Motrin] 800 mg PO Q8HR PRN 03/10/18 03/10/18 Unknown History Lidocaine Topical 2% 30Ml 1 cream TRANSDERMA PRN PRN 03/10/18 03/10/18 Unknown History [Xylocaine Topical 2% 30Ml] Montelukast [Singulair] 10 mg PO QPM 03/10/18 03/10/18 Unknown History Norelgestromin/Ethin.estradiol 1 each TD QWEEK 03/10/18 03/10/18 Unknown History [Xulane Patch] Ondansetron [Zofran TAB] 4 mg PO Q8HR PRN 03/10/18 03/10/18 Unknown History Oxycodone HCl/Acetaminophen 1 each PO Q6HR PRN 03/10/18 03/10/18 Unknown History [Percocet 10/325 mg] Propranolol [Inderal] 40 mg PO DAILY 03/10/18 03/10/18 Unknown History amLODIPine [Norvasc] 10 mg PO DAILY 03/10/18 03/10/18 Unknown History HYDROcodone/ACETAMINOPHEN [[place] 1 each PO Q6H PRN #30 tablet 03/16/18 Unknown Rx 5-325 Tablet] Ibuprofen [Motrin] 800 mg PO Q8HR PRN #60 tablet 03/16/18 Unknown Rx Active Meds: Active Medications Acetaminophen (Tylenol) 650 mg PO Q4H PRN PRN Reason: Pain, Mild (1-3) Amlodipine Besylate (Norvasc) 10 mg PO QDAY AMY Last Admin: 04/02/18 09:28 Dose: Not Given Documented by: Bisacodyl (Dulcolax) 10 mg VT QDAY PRN PRN Reason: Constip unreliev by MOM/or NPO Dextrose/Lactated Ringer's (D5lr) 1,000 mls @ 125 mls/hr IV DIRECT AMY Last Admin: 04/02/18 14:14 Dose: 125 mls/hr Documented by: Ceftriaxone Sodium (Rocephin/Ns 2 Gm/100 Ml) 2 gm in 100 mls @ 200 mls/hr IV Q 24HR AMY; Protocol Last Admin: 04/02/18 06:26 Dose: 200 mls/hr Documented by: Metronidazole (Flagyl 500 Mg/100 Ml) 500 mg in 100 mls @ 100 mls/hr IV Q8HR AMY; Protocol Last Admin: 04/02/18 14:12 Dose: 100 mls/hr Documented by: Magnesium Hydroxide (Milk Of Magnesia) 30 ml PO Q4H PRN PRN Reason: Constipation Metoclopramide HCl (Reglan) 10 mg IV Q6H PRN PRN Reason: Nausea And Vomiting Morphine Sulfate (Morphine) 2 mg IV Q4H PRN PRN Reason: Pain, Moderate (4-6) Morphine Sulfate (Morphine) 4 mg IV Q4H PRN PRN Reason: Pain , Severe (7-10) Naloxone HCl (Narcan 0.4 Mg/1 Ml) 0.1 mg IV Q2MIN PRN PRN Reason: Res Rate </= 8 or 02 SAT < 92% Ondansetron HCl (Zofran) 4 mg IV Q8H PRN PRN Reason: Nausea And Vomiting Ondansetron HCl (Zofran Odt) 4 mg PO Q8H PRN PRN Reason: Nausea And Vomiting Oxycodone/Acetaminophen (Percocet 5/325) 2 tab PO Q6H PRN PRN Reason: Pain, Moderate (4-6) Last Admin: 04/02/18 11:20 Dose: 2 tab Documented by: Promethazine HCl (Phenergan) 25 mg VT Q6H PRN PRN Reason: Nausea And Vomiting Zolpidem Tartrate (Ambien) 10 mg PO QHS PRN PRN Reason: Insomnia Physical Examination - Physical Exam Narrative exam: Constitutional: Alert, cooperative. mild distress- pain scale 5/10 Head, Ears, Nose: Normocephalic, atraumatic. External ears, nose normal Eyes: Conjunctivae/corneas clear. No icterus. No ptosis. Neck: Supple, no meningeal signs Oral: dentition good. no thrush Cardiovascular: S1, S2 normal. Respiratory: Good air entry, clear to auscultation bilaterally GI: Soft, left lower quadrant tender, active bowel sounds x 4 quadrants Musculoskeletal: No pedal edema, no cyanosis. Skin: 4 smalll abdominal incisions, dry and intact Hem/Lymphatic: No palpable cervical or supraclavicular nodes. No lymphangitis Psych: Mood ok. Affect normal Neurological: Awake, alert, oriented. - Constitutional Vitals: Vital Signs Temp Pulse Resp BP Pulse Ox 97.6 F 66 18 96/39 97 04/02/18 12:29 04/02/18 12:29 04/02/18 12:29 04/02/18 12:29 04/02/18 00:25 Temperature -Last 24 Hours Temperature 97.6 F Temperature 97.6 F Temperature 98.2 F Temperature 97.6 F Temperature 98.4 F Temperature 97.7 F Results - Labs CBC & Chem 7: 04/02/18 07:19 04/01/18 10:32 Labs: Abnormal lab results 04/02/18 Range/Units 07:19 WBC 16.6 H (4.5-11.0) K/mm3 RBC 3.38 L (3.65-5.03) M/mm3 MCV 101 H (79-97) fl MCH 33 H (28-32) pg Plt Count 457 H (140-440) K/mm3 Lymph % (Auto) 7.7 L (13.4-35.0) % Seg Neutrophils % 88.1 H (40.0-70.0) % Seg Neutrophils # 14.6 H (1.8-7.7) K/mm3 Assessment and Plan Imaging 04/01/2018 Abdomen/Pelvis CT: 5.5 x 2.5 x 2.7 centimeter thick-walled fluid and air collection superior to the vaginal cuff, concerning for abscess. Cultures 04/01/2018 Blood: no growth to date A/P: 48-year-old female with a past medical history of gastric bypass, fibromyalgia, hypothyroidism, headache, migraine and asthma. The patient was admitted to the hospital last month and had a robotic total abdominal hysterectomy, with bilateral salpingo-oophorectomy, with Dr. Mcallister,, The patient felt like she was recovering adequately from recent surgery until yesterday when she developed nontraumatic diffuse lower abdominal pain with associated bloody discharge, described as "mulitcellular materal", Now admitted with: 1. Leukocytois on admission: Etiology most likely vaginal cuff abscess. CT showed 5.5 x 2.5 x 2.7 centimeter thick-walled fluid and air collection superior to the vaginal cuff, concerning for abscess.Radiology has been consulted for evaluation for possible drainage of cuff abscess. No other infectious process, remains afebrile, Blood cultures show no growth to date. Currently being treated with Ceftriaxone and Flagyl. Plan: -f/u blood cultures -Agree with I & D, F/u surgical cultures -order CRP -continue Ceftriaxone and Flagyl d/w Dr. Casey Garcia, [employer] [facility] M: [phone] O:[phone]
[2018-04-03] MEDS: FLAGYL 500 MG/100 ML 500 MG/100 ML BAG IV SCH ×3 (06:36→22:30)
--- NOTE | 2018-04-03 09:01 | Progress Note ---
Assessment and Plan - Patient Problems (1) Abscess of vagina Current Visit: Yes Status: Acute Plan to address problem: scheduled for drainage of abscess today Subjective - Subjective Date of service: 04/03/18 Interval history: Patient without any significant complaints. She is scheduled for drainage of the abscess today. Patient reports: voiding normally, pain well controlled Objective - Vital Signs Latest vital signs: Vital Signs Temp Pulse Resp BP BP Pulse Ox 04/03/18 04:52 49 L 90/50 98 04/03/18 04:20 97.8 F 49 L 18 90/50 97 04/03/18 00:00 98.5 F 65 18 94/51 100 04/02/18 23:25 65 100 04/02/18 23:24 65 94/51 100 04/02/18 23:02 18 04/02/18 19:51 71 117/68 97 04/02/18 19:40 98.4 F 74 18 117/68 98 04/02/18 16:21 97.2 F L 62 18 115/72 04/02/18 12:29 97.6 F 66 18 96/39 Intake and Output 04/02/18 04/03/18 04/03/18 22:59 06:59 14:59 Intake Total 470 100 Output Total 900 Balance 470 -800 Intake: IV 110 100 FLAGYL 500 MG/100 ML 500 100 100 mg In 100 ml @ 100 mls/hr IV Q8HR [facility] Rx#: [id number] Left Forearm 10 Oral 360 Output: Urine 900 Void 900 Other: Total, Intake Amount 360 Total, Output Amount 900 Voiding Method Toilet - Labs Labs: Abnormal lab results 04/03/18 Range/Units 00:31 C-Reactive Protein 1.60 H (0.00-1.30) mg/dL
[2018-04-03] MEDS: ROCEPHIN/NS 2 GM/100 ML 2 GM/100 ML BAG IV SCH (10:05)
[2018-04-03] MEDS: D5LR 1,000 ML IV SCH (10:05)
[2018-04-03] MEDS: NORVASC PO SCH (10:06)
[2018-04-03] MEDS: PERCOCET 5/325 PO PRN ×3 (10:17→22:39)
--- NOTE | 2018-04-03 10:42 | Consultation ---
History of Present Illness - Reason for Consult Consult date: 04/03/18 Pelvic abscess - History of Present Illness Patient is status post robotic total hysterectomy. Her postoperative course was uneventful however, the patient began to experience abdominal pain and underwent a CT scan which demonstrates small fluid and gas collection at the stump of her hysterectomy site. Past History Social history: . denies: smoking, alcohol abuse, prescription drug abuse Medications and Allergies Allergies Allergy/AdvReac Type Severity Reaction Status Date / Time contrast dye Allergy Rash, Uncoded 03/09/18 08:20 reddened skin Home Medications Medication Instructions Recorded Confirmed Last Taken Type ALPRAZolam [Xanax] 2 mg PO TID 11/01/12 03/10/18 10/31/12 23:30 History Duloxetine HCl [Cymbalta] 60 mg PO QDAY 11/01/12 03/10/18 10/31/12 08:00 History Levothyroxine [Synthroid] 125 mcg PO QAM 11/01/12 03/10/18 10/31/12 07:00 History Pregabalin [Lyrica] 150 mg PO TID 11/01/12 03/10/18 10/31/12 22:00 History SUMAtriptan SUCCINATE [Imitrex] 100 mg PO PRN PRN 11/01/12 03/10/18 10/31/12 22:30 History Potassium Chloride [Klor-Con 10] 10 meq PO DAILY 10/28/13 03/10/18 Unknown History Sennosides/Docusate Sodium [Stool 100 mg PO DAILY 10/28/13 03/10/18 Unknown History Softener Tablet] ALBUTEROL NEB's [Proventil] 2.5 mg IH TID PRN 03/10/18 03/10/18 Unknown History Acyclovir [Zovirax Tab] 800 mg PO Q12H PRN 03/10/18 03/10/18 Unknown History Albuterol Sulfate [Ventolin Hfa] 2 puff IH Q4H PRN 03/10/18 03/10/18 Unknown History Buspirone HCl [busPIRone] 7.5 mg PO DAILY 03/10/18 03/10/18 Unknown History Cetirizine HCl [All Day Allergy] 10 mg PO DAILY 03/10/18 03/10/18 Unknown History Clonidine HCl [Catapres] 0.3 mg PO HS 03/10/18 03/10/18 Unknown History Dicyclomine [Bentyl] 20 mg PO BID 03/10/18 03/10/18 Unknown History Ergocalciferol [Vitamin D2] 1 cap PO QWEEK 03/10/18 03/10/18 Unknown History FLUoxetine HCL [Fluoxetine HCl] 40 mg PO DAILY 03/10/18 03/10/18 Unknown History Ferrous Sulfate [Feosol 325 MG tab] 325 mg PO TID 03/10/18 03/10/18 Unknown History Fluticasone [Flonase] 1 spray NS BID 03/10/18 03/10/18 Unknown History Hydrocortisone [Anusol-Hc] 30 gm RC DAILY PRN 03/10/18 03/10/18 Unknown History Ibuprofen [Motrin] 800 mg PO Q8HR PRN 03/10/18 03/10/18 Unknown History Lidocaine Topical 2% 30Ml 1 cream TRANSDERMA PRN PRN 03/10/18 03/10/18 Unknown History [Xylocaine Topical 2% 30Ml] Montelukast [Singulair] 10 mg PO QPM 03/10/18 03/10/18 Unknown History Norelgestromin/Ethin.estradiol 1 each TD QWEEK 03/10/18 03/10/18 Unknown History [Xulane Patch] Ondansetron [Zofran TAB] 4 mg PO Q8HR PRN 03/10/18 03/10/18 Unknown History Oxycodone HCl/Acetaminophen 1 each PO Q6HR PRN 03/10/18 03/10/18 Unknown History [Percocet 10/325 mg] Propranolol [Inderal] 40 mg PO DAILY 03/10/18 03/10/18 Unknown History amLODIPine [Norvasc] 10 mg PO DAILY 03/10/18 03/10/18 Unknown History HYDROcodone/ACETAMINOPHEN [[place] 1 each PO Q6H PRN #30 tablet 03/16/18 Unknown Rx 5-325 Tablet] Ibuprofen [Motrin] 800 mg PO Q8HR PRN #60 tablet 03/16/18 Unknown Rx Active Meds: Active Medications Acetaminophen (Tylenol) 650 mg PO Q4H PRN PRN Reason: Pain, Mild (1-3) Amlodipine Besylate (Norvasc) 10 mg PO QDAY AMY Last Admin: 04/03/18 10:06 Dose: 10 mg Documented by: Bisacodyl (Dulcolax) 10 mg NM QDAY PRN PRN Reason: Constip unreliev by MOM/or NPO Dextrose/Lactated Ringer's (D5lr) 1,000 mls @ 125 mls/hr IV DIRECT AMY Last Admin: 04/03/18 10:05 Dose: 125 mls/hr Documented by: Ceftriaxone Sodium (Rocephin/Ns 2 Gm/100 Ml) 2 gm in 100 mls @ 200 mls/hr IV Q24HR [facility]; Protocol Last Admin: 04/03/18 10:05 Dose: 200 mls/hr Documented by: Metronidazole (Flagyl 500 Mg/100 Ml) 500 mg in 100 mls @ 100 mls/hr IV Q8HR [facility]; Protocol Last Admin: 04/03/18 06:36 Dose: 100 mls/hr Documented by: Magnesium Hydroxide (Milk Of Magnesia) 30 ml PO Q4H PRN PRN Reason: Constipation Metoclopramide HCl (Reglan) 10 mg IV Q6H PRN PRN Reason: Nausea And Vomiting Morphine Sulfate (Morphine) 2 mg IV Q4H PRN PRN Reason: Pain, Moderate (4-6) Morphine Sulfate (Morphine) 4 mg IV Q4H PRN PRN Reason: Pain , Severe (7-10) Naloxone HCl (Narcan 0.4 Mg/1 Ml) 0.1 mg IV Q2MIN PRN PRN Reason: Res Rate </= 8 or 02 SAT < 92% Ondansetron HCl (Zofran) 4 mg IV Q8H PRN PRN Reason: Nausea And Vomiting Ondansetron HCl (Zofran Odt) 4 mg PO Q8H PRN PRN Reason: Nausea And Vomiting Oxycodone/Acetaminophen (Percocet 5/325) 2 tab PO Q6H PRN PRN Reason: Pain, Moderate (4-6) Last Admin: 04/03/18 10:17 Dose: 2 tab Documented by: Promethazine HCl (Phenergan) 25 mg NM Q6H PRN PRN Reason: Nausea And Vomiting Zolpidem Tartrate (Ambien) 10 mg PO QHS PRN PRN Reason: Insomnia Review of Systems All systems: negative Exam - Constitutional Vitals: Temp Pulse Resp BP Pulse Ox 97.8 F 52 L 20 122/78 98 04/03/18 04:20 04/03/18 10:06 04/03/18 10:17 04/03/18 10:06 04/03/18 04:52 General appearance: Present: no acute distress - EENT Eyes: Present: PERRL ENT: hearing intact - Neck Neck: Present: supple, normal ROM - Respiratory Respiratory effort: normal - Cardiovascular Rhythm: regular - Extremities Extremities: no ischemia - Abdominal General gastrointestinal: Present: soft Female genitourinary: Present: deferred - Rectal Rectal Exam: deferred - Psychiatric Psychiatric: appropriate mood/affect, cooperative Results - Labs CBC & Chem 7: 04/02/18 07:19 04/01/18 10:32 Labs: Abnormal lab results 04/03/18 Range/Units 00:31 C-Reactive Protein 1.60 H (0.00-1.30) mg/dL - Imaging and Cardiology CT scan - pelvis: report reviewed, image reviewed Assessment and Plan Plan for CT guided needle aspiration of pelvic fluid collection. Fluid collection not amenable to leave a drainage catheter behind.
--- NOTE | 2018-04-03 10:50 | Progress Note ---
Assessment and Plan Imaging 04/01/2018 Abdomen/Pelvis CT: 5.5 x 2.5 x 2.7 centimeter thick-walled fluid and air collection superior to the vaginal cuff, concerning for abscess. Cultures 04/01/2018 Blood: no growth to date 04/01/2018 Urine culture pending A/P: 48-year-old female with a past medical history of gastric bypass, fibromyalgia, hypothyroidism, headache, migraine and asthma. The patient was admitted to the hospital last month and had a robotic total abdominal hysterectomy, with bilateral salpingo-oophorectomy, with Dr. Mcallister,, The patient felt like she was recovering adequately from recent surgery until yesterday when she developed nontraumatic diffuse lower abdominal pain with associated bloody discharge, described as "mulitcellular materal", Now admitted with: 1. Leukocytois on admission: worsening, however no fever or hypotension. Etiology most likely vaginal cuff abscess. Currently being treated with Ceftriaxone and Flagyl. 2. Vaginal Cuff Abscess: likely etiology- vaginal jimmy. - CT showed 5.5 x 2.5 x 2.7 centimeter thick-walled fluid and air collection superior to the vaginal cuff, concerning for abscess. - Blood cultures show no growth to date. - CRP=1.6 Plan: - patient is to have IR drainage today, hopefully deep abscess specimen will be sent to cultures, she is NPO - f/u blood cultures - continue Ceftriaxone and Flagyl D2 will follow Laurel Peña MD Subjective Date of service: 04/03/18 Principal diagnosis: pelvic abscess Interval history: Patient reports feeling catina, she was able to sleep, pelvic pain is better 4 of 10. She had a normal BM. No fever, N/V/D. Objective - Exam Narrative Exam: Constitutional: Alert, cooperative. in NAD, pleasant Head, Ears, Nose: Normocephalic, atraumatic. External ears, nose normal Eyes: Conjunctivae/corneas clear. No icterus. No ptosis. Neck: Supple, no meningeal signs Oral: dentition good. no thrush Cardiovascular: S1, S2 normal. Respiratory: Good air entry, clear to auscultation bilaterally GI: Soft, left lower quadrant mild tenderness, active bowel sounds x 4 quadrants Musculoskeletal: No pedal edema, no cyanosis. Skin: 4 smalll abdominal incisions, dry and intact Hem/Lymphatic: No palpable cervical or supraclavicular nodes. No lymphangitis Psych: Mood ok. Affect normal Neurological: Awake, alert, oriented. - Constitutional Vitals: Vital Signs Temp Pulse Resp BP Pulse Ox 97.8 F 52 L 20 122/78 98 04/03/18 04:20 04/03/18 10:06 04/03/18 10:17 04/03/18 10:06 04/03/18 04:52 Temperature -Last 24 Hours Temperature 97.8 F Temperature 98.5 F Temperature 98.4 F Temperature 97.2 F Temperature 97.6 F - Labs CBC & Chem 7: 04/02/18 07:19 04/01/18 10:32 Labs: Abnormal lab results 04/03/18 Range/Units 00:31 C-Reactive Protein 1.60 H (0.00-1.30) mg/dL
[2018-04-03] MEDS ORDERED: VERSED IV ONE ×2 (11:22→11:32)
[2018-04-03] MEDS ORDERED: SUBLIMAZE IV ONE (11:22)
[2018-04-03] MEDS ORDERED: NACL 0.9% 500 ML 0 ML ONE (11:31)
[2018-04-03] MEDS ORDERED: SUBLIMAZE ONE (11:32)
[2018-04-03] MEDS ORDERED: NACL 0.9% 500 ML 500 ML IV SCH (12:00)
--- NOTE | 2018-04-03 12:03 | Event Note ---
Date: 04/03/18 Patient was brought down to CT in anticipation of CT-guided aspiration of her pelvic fluid collection. Initial ranch helper images of her abdomen and pelvis were obtained. The previously noted very small area of fluid and air has resolved. Would suspect that much of what was described on the initial CT was actually postsurgical changes. Would recommend that the patient be discharged home on antibiotics per infectious disease and primary.
[2018-04-04] MEDS: FLAGYL 500 MG/100 ML 500 MG/100 ML BAG IV SCH (06:54)
--- NOTE | 2018-04-04 09:02 | Progress Note ---
Assessment and Plan - Patient Problems (1) Abscess of vagina Current Visit: Yes Status: Acute Subjective - Subjective Date of service: 04/04/18 Principal diagnosis: pelvic abscess Interval history: Patient without any significant complaints. She is scheduled for drainage of the abscess today. Objective - Vital Signs Latest vital signs: Vital Signs Temp Pulse Pulse Resp BP BP Pulse Ox 04/04/18 06:01 98.4 F 49 L 19 104/60 100 04/04/18 00:45 98.1 F 51 L 18 89/53 97 04/03/18 22:39 18 04/03/18 20:56 97.9 F 63 20 112/69 100 04/03/18 20:45 62 18 04/03/18 16:44 20 04/03/18 16:26 97.7 F 65 20 100/50 97 04/03/18 13:01 98.0 F 58 L 20 104/64 99 04/03/18 10:17 20 04/03/18 10:06 52 L 122/78 Intake and Output 04/03/18 04/04/18 04/04/18 22:59 06:59 14:59 Intake Total 10 130 Output Total 600 300 Balance -590 -170 Intake: IV 10 130 FLAGYL 500 MG/100 ML 500 100 mg In 100 ml @ 100 mls/hr IV Q8HR [facility] Rx#: [id number] Left Forearm 10 20 Right Forearm 10 Output: Urine 600 300 Void 600 300 Other: Total, Output Amount 600 300 Voiding Method Toilet Toilet # Voids Void 1 1 # Bowel Movements 1
--- NOTE | 2018-04-04 09:04 | Discharge Summary ---
Providers - Providers Date of Admission: 04/01/18 16:46 Date of discharge: 04/04/18 Attending physician: ANGEL GIL 04/01/18 10:26 Consult to Physician [CONS] Urgent Comment: Consulting Provider: ANGEL GIL Physician Instructions: Reason For Exam: post of vag bleed 04/01/18 20:21 Consult to Physician [CONS] Urgent Comment: Consulting Provider: PAOLO NOLAN Physician Instructions: Reason For Exam: vaginal cuff abscess 04/01/18 20:23 Consult to Physician [CONS] Urgent Comment: Consulting Provider: JUICE GONSALES Physician Instructions: Reason For Exam: vaginal cuff abscess 04/02/18 18:55 Consult to Interventional Radiology [CONS] Routine Consulting Provider: GLENROY GUERRERO Reason For Exam: need for ct guided abcess draining Notified:: [id number] Was contact made?: No Time called:: 18:50 Comment:: to attempt again in am Primary care physician: MIGUELANGEL JUAREZ Hospitalization Reason for admission: other (pelvic abscess) Discharge diagnosis: other (Pelvic abscess) Hospital course: Patient admitted with the complaint of vaginal bleeding and pelvic pain. Patient found to have a pelvic abscess. IV abx initiated. Scheduled for drainage of abscess but had spontaneous resolution. Patient remained afebrile Condition at discharge: Good Disposition: DC- TO HOME OR SELFCARE - Discharge Diagnoses (1) Abscess of vagina Status: Acute Plan - Discharge Medications Prescriptions: Fluconazole [Diflucan] 150 mg PO ONCE #1 tablet levoFLOXacin [Levaquin TAB] 500 mg PO QDAY #14 tablet metroNIDAZOLE [Flagyl] 500 mg PO Q12HR #14 tab oxyCODONE /ACETAMINOPHEN [Percocet 5/325] 1 tab PO Q6HR PRN #30 tablet PRN Reason: Pain - Provider Discharge Summary Activity: no sex for 6 weeks, no heavy lifting 4 weeks, no strenuous exercise Diet: routine Instructions: routine Additional instructions: [] Smoking cessation referral if applicable(refer to patient education folder for contact #) [] Refer to [facility] Booklet Call your doctor immediately for: * Fever > 100.5 * Heavy vaginal bleeding ( >1 pad per hour) * Severe persistent headache * Shortness of breath * Reddened, hot, painful area to leg or breast * Drainage or odor from incision. * Keep incision clean and dry at all times and follow doctor's instructions regarding bathing/showering Patient has scheduled followup on Apr 11 - Follow up plan
[2018-04-04] MEDS: PERCOCET 5/325 PO PRN (09:51)
[2018-04-04] MEDS: NORVASC PO SCH (09:52)
[2018-04-04] MEDS: ROCEPHIN/NS 2 GM/100 ML 2 GM/100 ML BAG IV SCH (09:52)
--- NOTE | 2018-04-04 11:06 | Progress Note ---
Assessment and Plan Imaging 04/01/2018 Abdomen/Pelvis CT: 5.5 x 2.5 x 2.7 centimeter thick-walled fluid and air collection superior to the vaginal cuff, concerning for abscess. Cultures 04/01/2018 Blood: no growth to date 04/01/2018 Urine culture E coli resistant to levaquin A/P: 48-year-old female with a past medical history of gastric bypass, fibromyalgia, hypothyroidism, headache, migraine and asthma. The patient was admitted to the hospital last month and had a robotic total abdominal hysterectomy, with bilateral salpingo-oophorectomy, with Dr. Mcallister,, The patient felt like she was recovering adequately from recent surgery until yesterday when she developed nontraumatic diffuse lower abdominal pain with associated bloody discharge, described as "mulitcellular materal", Now admitted with: 1. Leukocytois on admission: worsening, however no fever or hypotension. Etiology most likely vaginal cuff abscess. Currently being treated with Ceftriaxone and Flagyl. 2. Vaginal Cuff Abscess: likely etiology- vaginal jimmy. - CT showed 5.5 x 2.5 x 2.7 centimeter thick-walled fluid and air collection superior to the vaginal cuff, concerning for abscess. - Blood cultures show no growth to date. - CRP=1.6 - Attempt to CT drainage on 04/03/2018 showed previously noted very small area of fluid and air has resolved. Patient did not need drainage. 3. Urine culture with E coli resis to levaquin but no UA sent so unclear if she has a UTI. She is clinically asymptomatic for UTI. Plan: - continue Ceftriaxone and Flagyl D3 - ok to d/c home on ceftin 500 mg PO BID and Flagyl 500 mg TID for 14 days - ID clinic f/u in [address] Rashad MD Subjective Date of service: 04/04/18 Principal diagnosis: pelvic abscess Interval history: Patient reports feeling better, no pain. No fever, N/V/D. Objective - Exam Narrative Exam: Constitutional: Alert, cooperative. in NAD, pleasant Head, Ears, Nose: Normocephalic, atraumatic. External ears, nose normal Eyes: Conjunctivae/corneas clear. No icterus. No ptosis. Neck: Supple, no meningeal signs Oral: dentition good. no thrush Cardiovascular: S1, S2 normal. Respiratory: Good air entry, clear to auscultation bilaterally GI: Soft, left lower quadrant mild tenderness, active bowel sounds x 4 quadrants Musculoskeletal: No pedal edema, no cyanosis. Skin: 4 smalll abdominal incisions, dry and intact Hem/Lymphatic: No palpable cervical or supraclavicular nodes. No lymphangitis Psych: Mood ok. Affect normal Neurological: Awake, alert, oriented. - Constitutional Vitals: Vital Signs Temp Pulse Resp BP Pulse Ox 98.4 F 58 L 18 118/67 100 04/04/18 09:14 04/04/18 09:14 04/04/18 09:51 04/04/18 09:14 04/04/18 09:14 Temperature -Last 24 Hours Temperature 98.4 F Temperature 98.4 F Temperature 98.1 F Temperature 97.9 F Temperature 97.7 F Temperature 98.0 F - Labs CBC & Chem 7: 04/02/18 07:19 04/01/18 10:32
[2018-04-04 12:13] VITALS: BP 100/53
--- NOTE | 2018-04-04 13:02 | Cat Scan Report ---
Exam: Limited CT of the pelvis Clinical indication: Patient with history of pelvic fluid collection status post robotic hysterectomy Date: 04/03/2018 Procedure: Patient was brought to the CT suite and placed in supine position on the gantry. Initial chief diversity officer images of lower abdomen and pelvis were obtained for localization of the fluid collection. Patient's previously demonstrated fluid collection within the pelvis is essentially resolved. Post surgical changes are present. Impression: Limited CT of the pelvis demonstrating near complete resolution of the patient's previous fluid collection.
== END 2018-04-04 12:10 | disposition home or self-care (01) | DRG 863 ==
LOC: ED 09:45 → OB 16:46
PROVIDERS: ADMIT Obstetrics & Gynecology; ATTEND Obstetrics & Gynecology
DX: T81.49XA Infection following a procedure, other surgical site, initial encounter (principal); E03.9 Hypothyroidism, unspecified; J45.909 Unspecified asthma, uncomplicated; N76.0 Acute vaginitis; Y83.8 Other surgical procedures as the cause of abnormal reaction of the patient, or of later complication, without mention of misadventure at the time of the procedure; G43.909 Migraine, unspecified, not intractable, without status migrainosus; N73.9 Female pelvic inflammatory disease, unspecified; Z98.84 Bariatric surgery status; Z80.9 Family history of malignant neoplasm, unspecified; Z91.041 Radiographic dye allergy status; Z90.710 Acquired absence of both cervix and uterus; Z79.01 Long term (current) use of anticoagulants; Z79.899 Other long term (current) drug therapy; Z79.51 Long term (current) use of inhaled steroids; Y92.098 Other place in other non-institutional residence as the place of occurrence of the external cause
CPT/HCPCS: 36415; 72192; 74177; 80053; 82140; 83690; 85025; 85610; 86140; 86850; 86900; 86901; 87040; 87076; 87086; 87186; 96374; G0378; J0696; J1200; J1956; J2250; J2405; J2930; J3010; J7030; J7040; J7121; Q9967

== ENCOUNTER 2020-05-27 07:37 | Observation (INO) | payer OTHER ==
[2020-05-27 08:11] LABS: Basophils % (Auto) 0.3 % (0.0-1.8); Eosinophils # (Auto) 0.3 K/mm3 (0.0-0.4); Eosinophils % (Auto) 5.8 % (0.0-4.3); Hematocrit 36.8 % (30.3-42.9); Hemoglobin 12.5 gm/dl (10.1-14.3); Lymphocytes # (Auto) 1.5 K/mm3 (1.2-5.4); Lymphocytes % (Auto) 28.2 % (13.4-35.0); Mean Corpuscular HGB Conc 34 % (30-34); Mean Corpuscular Volume 99 fl (79-97); Monocytes # (Auto) 0.3 K/mm3 (0.0-0.8); Monocytes % (Auto) 5.6 % (0.0-7.3); Platelet Count 276 K/mm3 (140-440); Red Blood Count 3.71 M/mm3 (3.65-5.03); Red Cell Distribution Width 16.2 % (13.2-15.2)
[2020-05-27 08:19] LABS: Bacteria,Urine 1+ /HPF (Negative); Bilirubin,Urine NEG (Negative); Blood,Urine MOD (Negative); Color,Urine Yellow (Yellow); Mucus,Urine 1+ /HPF
[2020-05-27 08:36] LABS: Alanine Aminotransferase 8 units/L (7-56); Albumin 4.2 g/dL (3.9-5); Blood Urea Nitrogen 12 mg/dL (7-17); Calcium 8.7 mg/dL (8.4-10.2); Hemolysis Index 7
[2020-05-27 08:41] LABS: BUN/Creatinine Ratio 24
--- NOTE | 2020-05-27 10:04 | Emergency Department Report ---
ED Abdominal Pain HPI - General Chief Complaint: Abdominal Pain Stated Complaint: ABD PAIN/VOMITING/BLOOD IN STOOL Time Seen by Provider: 05/27/20 09:47 Source: patient Mode of arrival: Ambulatory Limitations: No Limitations - History of Present Illness Initial Comments: Pleasant 50-year-old -Fijian female presents to the emergency room complaining of abdominal pain, black tarry stools for the 3 to 4 days, nausea and vomiting since Tuesday and vomiting this morning with blood. Patient states that her abdominal pain started in her left lower quadrant and will radiate up to her upper left quadrant. Patient states she took Zofran. She denies any diarrhea. Patient states she has been taking the Carafate and hyoscyamine for her abdominal pain as she has had a history of bleeding ulcers. Patient states that she suffers from low iron and will often get iron infusions she has had 3 of them so far. Patient states she has been doing a bland diet. Patient has a surgical history of a gastric bypass in 2008. She has had shoulder surgery as well. Patient has a past medical history of asthma arthritis GERD migraines hypertension. Patient is followed by Dr. Sergio Hyman, GI specialist at [facility]. Onset/Timin -: days(s) Location: LLQ Radiation: LUQ Severity scale (0 -10): 7 Quality: sharp Consistency: constant Improves With: nothing Worsens With: nothing Associated Symptoms: nausea, vomiting, hematemesis, hematochezia, melena. denies: diarrhea, fever, chills, constipation, dysuria, hematuria, anorexia, syncope Treatments Prior to Arrival: antacids - Related Data Home Medications Medication Instructions Recorded Confirmed Last Taken ALPRAZolam [Xanax] 2 mg PO TID 11/01/12 03/10/18 10/31/12 23:30 Duloxetine HCl [Cymbalta] 60 mg PO QDAY 11/01/12 03/10/18 10/31/12 08:00 Levothyroxine [Synthroid] 125 mcg PO QAM 11/01/12 03/10/18 10/31/12 07:00 Pregabalin [Lyrica] 150 mg PO TID 11/01/12 03/10/18 10/31/12 22:00 SUMAtriptan SUCCINATE [Imitrex] 100 mg PO PRN PRN 11/01/12 03/10/1810/31/13 22:30 Potassium Chloride [Klor-Con 10] 10 meq PO DAILY 10/28/13 03/10/18 Unknown Sennosides/Docusate Sodium [Stool 100 mg PO DAILY 10/28/13 03/10/18 Unknown Softener Tablet] ALBUTEROL NEB's [Proventil] 2.5 mg IH TID PRN 03/10/18 03/10/18 Unknown Acyclovir [Zovirax Tab] 800 mg PO Q12H PRN 03/10/18 03/10/18 Unknown Albuterol Sulfate [Ventolin Hfa] 2 puff IH Q4H PRN 03/10/18 03/10/18 Unknown Buspirone HCl [busPIRone] 7.5 mg PO DAILY 03/10/18 03/10/18 Unknown Cetirizine HCl [All Day Allergy] 10 mg PO DAILY 03/10/18 03/10/18 Unknown Dicyclomine [Bentyl] 20 mg PO BID 03/10/18 03/10/18 Unknown Ergocalciferol [Vitamin D2] 1 cap PO QWEEK 03/10/18 03/10/18 Unknown FLUoxetine HCL [Fluoxetine HCl] 40 mg PO DAILY 03/10/18 03/10/18 Unknown Ferrous Sulfate [Feosol 325 MG tab] 325 mg PO TID 03/10/18 03/10/18 Unknown Fluticasone [Flonase] 1 spray NS BID 03/10/18 03/10/18 Unknown Hydrocortisone [Anusol-Hc] 30 gm RC DAILY PRN 03/10/18 03/10/18 Unknown Ibuprofen [Motrin] 800 mg PO Q8HR PRN 03/10/18 03/10/18 Unknown Lidocaine Topical 2% 30Ml 1 cream TRANSDERMA PRN PRN 03/10/18 03/10/18 Unknown [Xylocaine Topical 2% 30Ml] Montelukast [Singulair] 10 mg PO QPM 03/10/18 03/10/18 Unknown Norelgestromin/Ethin.estradiol 1 each TD QWEEK 03/10/18 03/10/18 Unknown [Xulane Patch] Ondansetron [Zofran TAB] 4 mg PO Q8HR PRN 03/10/18 03/10/18 Unknown Oxycodone HCl/Acetaminophen 1 each PO Q6HR PRN 03/10/18 03/10/18 Unknown [Percocet 10/325 mg] amLODIPine [Norvasc] 10 mg PO DAILY 03/10/18 03/10/18 Unknown cloNIDine HCL [Catapres] 0.3 mg PO HS 03/10/18 03/10/18 Unknown propranoloL [Inderal] 40 mg PO DAILY 03/10/18 03/10/18 Unknown Previous Rx's Medication Instructions Recorded Last Taken Type HYDROcodone/ACETAMINOPHEN [[place] 1 each PO Q6H PRN #30 tablet 03/16/18 Unknown Rx 5-325 Tablet] Ibuprofen [Motrin] 800 mg PO Q8HR PRN #60 tablet 03/16/18 Unknown Rx Fluconazole [Diflucan] 150 mg PO ONCE #1 tablet 04/04/18 Unknown Rx levoFLOXacin [Levaquin TAB] 500 mg PO QDAY #14 tablet 04/04/18 Unknown Rx metroNIDAZOLE [Flagyl] 500 mg PO Q12HR #14 tab 04/04/18 Unknown Rx oxyCODONE /ACETAMINOPHEN [Percocet 1 tab PO Q6HR PRN #30 tablet 04/04/18 Unknown Rx 5/325] Nitrofurantoin [place]/M-Cryst 100 mg PO Q12HR #10 capsule 11/17/18 Unknown Rx [Macrobid CAP] traMADoL [Ultram] 50 mg PO Q6HR PRN #10 tablet 11/17/18 Unknown Rx Allergies Allergy/AdvReac Type Severity Reaction Status Date / Time contrast dye Allergy Rash, Uncoded 05/27/20 07:38 reddened skin ED Review of Systems ROS: Stated complaint: ABD PAIN/VOMITING/BLOOD IN STOOL Other details as noted in HPI Comment: All other systems reviewed and negative ED Past Medical Hx - Past Medical History Hx Hypertension: Yes Hx Congestive Heart Failure: No Hx Diabetes: No Hx GERD: Yes Hx Arthritis: Yes (Hands) Hx Headaches / Migraines: Yes Hx Seizures: Yes (Not sure, may have had one but not diagnosed) Hx Psychiatric Treatment: No Hx Asthma: Yes Hx COPD: No Hx HIV: No Additional medical history: hypothyroid. fibromyalgia - Surgical History Additional Surgical History: gastric bypass/ SHOULDER SURGERY - Social History Smoking Status: Never Smoker Substance Use Type: None - Medications Home Medications: Home Medications Medication Instructions Recorded Confirmed Last Taken Type ALPRAZolam [Xanax] 2 mg PO TID 11/01/12 03/10/18 10/31/12 23:30 History Duloxetine HCl [Cymbalta] 60 mg PO QDAY 11/01/12 03/10/18 10/31/12 08:00 History Levothyroxine [Synthroid] 125 mcg PO QAM 11/01/12 03/10/18 10/31/12 07:00 Histor y Pregabalin [Lyrica] 150 mg PO TID 11/01/12 03/10/18 10/31/12 22:00 History SUMAtriptan SUCCINATE [Imitrex] 100 mg PO PRN PRN 11/01/12 03/10/18 10/31/12 22:30 History Potassium Chloride [Klor-Con 10] 10 meq PO DAILY 10/28/13 03/10/18 Unknown History Sennosides/Docusate Sodium [Stool 100 mg PO DAILY 10/28/13 03/10/18 Unknown History Softener Tablet] ALBUTEROL NEB's [Proventil] 2.5 mg IH TID PRN 03/10/18 03/10/18 Unknown History Acyclovir [Zovirax Tab] 800 mg PO Q12H PRN 03/10/18 03/10/18 Unknown History Albuterol Sulfate [Ventolin Hfa] 2 puff IH Q4H PRN 03/10/18 03/10/18 Unknown History Buspirone HCl [busPIRone] 7.5 mg PO DAILY 03/10/18 03/10/18 Unknown History Cetirizine HCl [All Day Allergy] 10 mg PO DAILY 03/10/18 03/10/18 Unknown History Dicyclomine [Bentyl] 20 mg PO BID 03/10/18 03/10/18 Unknown History Ergocalciferol [Vitamin D2] 1 cap PO QWEEK 03/10/18 03/10/18 Unknown History FLUoxetine HCL [Fluoxetine HCl] 40 mg PO DAILY 03/10/18 03/10/18 Unknown History Ferrous Sulfate [Feosol 325 MG tab] 325 mg PO TID 03/10/18 03/10/18 Unknown History Fluticasone [Flonase] 1 spray NS BID 03/10/18 03/10/18 Unknown History Hydrocortisone [Anusol-Hc] 30 gm RC DAILY PRN 03/10/18 03/10/18 Unknown History Ibuprofen [Motrin] 800 mg PO Q8HR PRN 03/10/18 03/10/18 Unknown History Lidocaine Topical 2% 30Ml 1 cream TRANSDERMA PRN PRN 03/10/18 03/10/18 Unknown History [Xylocaine Topical 2% 30Ml] Montelukast [Singulair] 10 mg PO QPM 03/10/18 03/10/18 Unknown History Norelgestromin/Ethin.estradiol 1 each TD QWEEK 03/10/18 03/10/18 Unknown History [Xulane Patch] Ondansetron [Zofran TAB] 4 mg PO Q8HR PRN 03/10/18 03/10/18 Unknown History Oxycodone HCl/Acetaminophen 1 each PO Q6HR PRN 03/10/18 03/10/18 Unknown History [Percocet 10/325 mg] amLODIPine [Norvasc] 10 mg PO DAILY 03/10/18 03/10/18 Unknown History cloNIDine HCL [Catapres] 0.3 mg PO HS 03/10/18 03/10/18 Unknown History propranoloL [Inderal] 40 mg PO DAILY 03/10/18 03/10/18 Unknown History HYDROcodone/ACETAMINOPHEN [[place] 1 each PO Q6H PRN #30 tablet 03/16/18 Unknown Rx 5-325 Tablet] Ibuprofen [Motrin] 800 mg PO Q8HR PRN #60 tablet 03/16/18 Unknown Rx Fluconazole [Diflucan] 150 mg PO ONCE #1 tablet 04/04/18 Unknown Rx levoFLOXacin [Levaquin TAB] 500 mg PO QDAY #14 tablet 04/04/18 Unknown Rx metroNIDAZOLE [Flagyl] 500 mg PO Q12HR #14 tab 04/04/18 Unknown Rx oxyCODONE /ACETAMINOPHEN [Percocet 1 tab PO Q6HR PRN #30 tablet 04/04/18 Unknown Rx 5/325] Nitrofurantoin [place]/M-Cryst 100 mg PO Q12HR #10 capsule 11/17/18 Unknown Rx [Macrobid CAP] traMADoL [Ultram] 50 mg PO Q6HR PRN #10 tablet 11/17/18 Unknown Rx ED Physical Exam - General Limitations: No Limitations General appearance: alert, in no apparent distress - Head Head exam: Present: atraumatic, normocephalic - Eye Eye exam: Present: normal appearance, PERRL - ENT ENT exam: Present: normal exam, normal external ear exam - Neck Neck exam: Present: normal inspection, full ROM - Respiratory Respiratory exam: Present: normal lung sounds bilaterally. Absent: respiratory distress ED Course Vital Signs 05/27/20 05/27/20 05/27/20 07:45 11:31 11:32 Temperature 98.9 F Pulse Rate 56 L Pulse Rate [ 20 L Lying] Pulse Rate [ 52 L Sitting] Pulse Rate [ 57 L Standing] Respiratory 20 18 Rate Blood Pressure 123/78 Blood Pressure 127/54 [Lying] Blood Pressure 131/60 [Sitting] Blood Pressure 132/65 [Standing] O2 Sat by Pulse 100 Oximetry - Consultations Consultation #1: 05/27/20 12:[address] Amor from [facility] states she will consult patient if she is admitted. She recommends IV Protonix and n.p.o. ED Medical Decision Making - Lab Data Result diagrams: 05/27/20 07:57 05/27/20 07:57 - Radiology Data Radiology results: report reviewed [facility] [address] [place] [address] Cat Scan Report Signed Patient: LISA LUTZ MR#: [id number] : 1970 Acct:[id number] Age/Sex: 50 / F ADM Date: 05/27/20 Loc: ED Attending Dr: Ordering Physician: ALESSANDRA MELENDEZ Date of Service: 05/27/20 Procedure(s): CT abdomen pelvis wo con Accession Number(s): [id number] cc: ALESSANDRA MELENDEZ CT ABDOMEN AND PELVIS WITHOUT CONTRAST INDICATION / CLINICAL INFORMATION: Abdominal pain with hematochezia hematemesis. TECHNIQUE: Axial CT images were obtained through the abdomen and pelvis without IV contrast. All CT scans at this location are performed using CT dose reduction for ALARA by means of automated exposure control. COMPARISON: 11/17/2018 FINDINGS: LOWER CHEST: No significant abnormality. LIVER: No significant abnormality. GALLBLADDER: No significant abnormality. BILE DUCTS: No significant abnormality. PANCREAS: No significant abnormality. SPLEEN: No significant abnormality. ADRENALS: No significant abnormality. RIGHT KIDNEY / URETER: No significant abnormality. LEFT KIDNEY / URETER: No significant abnormality. STOMACH / SMALL BOWEL: Postsurgical changes of the stomach and small bowel are stable. Hyperattenuating intraluminal material concerning for hemorrhage noted within the distal small bowel loops collected in the pelvis near the rectal vault (series 2 image 147-151, HU 153). COLON: Hyperattenuating material also noted within the proximal colon to the level the splenic flexure. APPENDIX: No significant abnormality. PERITONEUM: No free fluid. No free air. No fluid collection. LYMPH NODES: No significant adenopathy. AORTA / ARTERIES: No significant abnormality. IVC / VEINS: No significant abnormality. URINARY BLADDER: No significant abnormality. REPRODUCTIVE ORGANS: Prior hysterectomy. ADDITIONAL FINDINGS: None. SKELETAL SYSTEM: Multilevel degenerative changes are noted of the spine. 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 No aggressive osseous lesions. IMPRESSION: 1. Hyperattenuating intraluminal material within the distal small bowel and proximal colon concerning for intraluminal hemorrhage given the patient's clinical history. The greatest focus in the distal small bowel loops of the pelvis adjacent to the rectal vault (series 2 image 147-151), which is likely the source for bleeding. Correlate with patient's history to exclude ingestion of any hyperattenuating material or p.o. contrast. 2. Postsurgical changes to the stomach and small bowel are stable since prior exam. Additional findings are unchanged from prior. Signer Name: Tristan Urbina MD Signed: 05/27/2020 11:19 AM Workstation Name: [id number] Transcribed By: Dictated By: TRISTAN URBINA Electronically Authenticated By: TRISTAN URBINA Signed Date/Time: 05/27/20 111 DD/ 1109 TD/TT: Print Cancel - Medical Decision Making Pleasant 50-year-old -Fijian female presents to the emergency room complaining of abdominal pain, black tarry stools for the 3 to 4 days, nausea and vomiting since Tuesday and vomiting this morning with blood. Patient states that her abdominal pain started in her left lower quadrant and will radiate up to her upper left quadrant. Patient states she took Zofran. She denies any diarrhea. Patient states she has been taking the Carafate and hyoscyamine for her abdominal pain as she has had a history of bleeding ulcers. Patient states that she suffers from low iron and will often get iron infusions she has had 3 of them so far. Patient states she has been doing a bland diet. Patient has a surgical history of a gastric bypass in 2008. She has had shoulder surgery as well. Patient has a past medical history of asthma arthritis GERD migraines hypertension. Patient is followed by Dr. Sergio Hyman, GI specialist at [facility]. CBC CMP PT PTT urinalysis CT abdomen. Spoke with Dr. Melgar who recommends orthostatic and stool guaiac. CT is concerning for small bowel intermedial bleed just adjacent to the pelvic vault. Discussed concerns with Dr. Lang. He recommends for me to consult GI. Critical care attestation.: If time is entered above; I have spent that time in minutes in the direct care of this critically ill patient, excluding procedure time. ED Disposition Clinical Impression: GI bleed, Nausea & vomiting Disposition: OP ADMIT IP TO THIS HOSP Is pt being admited?: Yes Does the pt Need Aspirin: No Condition: Stable Instructions: Abdominal Pain (ED) Referrals: JOSE LUIS [facility] [employer]ICER [Primary Care Provider] - 3-5 Days
[2020-05-27 11:00] LABS: INR 1.06 (0.87-1.13)
[2020-05-27 11:01] LABS: Partial Thromboplastin Time 27.5 Sec. (24.2-36.6)
[2020-05-27] MEDS ORDERED: ONDANSETRON 4 MG/2 ML INJ IV ONE (11:06)
[2020-05-27] MEDS ORDERED: MORPHINE 4 MG/1 ML INJ IV ONE (11:07)
--- NOTE | 2020-05-27 11:24 | Cat Scan Report ---
CT ABDOMEN AND PELVIS WITHOUT CONTRAST INDICATION / CLINICAL INFORMATION: Abdominal pain with hematochezia hematemesis. TECHNIQUE: Axial CT images were obtained through the abdomen and pelvis without IV contrast. All CT scans at [facility] location are performed using CT dose reduction for ALARA by means of automated exposure control. COMPARISON: 11/17/2018 FINDINGS: LOWER CHEST: No significant abnormality. LIVER: No significant abnormality. GALLBLADDER: No significant abnormality. BILE DUCTS: No significant abnormality. PANCREAS: No significant abnormality. SPLEEN: No significant abnormality. ADRENALS: No significant abnormality. RIGHT KIDNEY / URETER: No significant abnormality. LEFT KIDNEY / URETER: No significant abnormality. STOMACH / SMALL BOWEL: Postsurgical changes of the stomach and small bowel are stable. Hyperattenuati ng intraluminal material concerning for hemorrhage noted within the distal small bowel loops collecte d in the pelvis near the rectal vault (series 2 image 147-151, HU 153). COLON: Hyperattenuating material also noted within the proximal colon to the level the splenic flexur e. APPENDIX: No significant abnormality. PERITONEUM: No free fluid. No free air. No fluid collection. LYMPH NODES: No significant adenopathy. AORTA / ARTERIES: No significant abnormality. IVC / VEINS: No significant abnormality. URINARY BLADDER: No significant abnormality. REPRODUCTIVE ORGANS: Prior hysterectomy. ADDITIONAL FINDINGS: None. SKELETAL SYSTEM: Multilevel degenerative changes are noted of the spine. Osteitis condensans ilii not ed bilateral SI joints. No aggressive osseous lesions. IMPRESSION: 1. Hyperattenuating intraluminal material within the distal small bowel and proximal colon concerning for intraluminal hemorrhage given the patient's clinical history. The greatest focus in the distal s mall bowel loops of the pelvis adjacent to the rectal vault (series 2 image 147-151), which is likely the source for bleeding. Correlate with patient's history to exclude ingestion of any hyperattenuati ng material or p.o. contrast. 2. Postsurgical changes to the stomach and small bowel are stable since prior exam. Additional findin gs are unchanged from prior. Signer Name: Tristan Ochoa MD Signed: 05/27/2020 11:19 AM Workstation Name: [id number]
[2020-05-27] MEDS ORDERED: PANTOPRAZOLE 40 MG INJ IV ONE (12:28)
--- NOTE | 2020-05-27 12:41 | Gastroenterology Consultation ---
History of Present Illness - Reason for Consult Consult date: 05/27/20 gi bleed - History of Present Illness This is a 50 yo female with pmh of gastric bypass, hysterectomy, prior gastric ulcers, esophagitis presenting to the ED for abdominal pain, nausea/vomiting, and melena. Patient reports having mid to LLQ abdominal pain for the past 3 weeks. She is scheduled to see her outpatient GI doctor, Dr. Hyman. She began having black tarry stools 1-2 times day since Tuesday and nausea/vomiting. Reports one episode of hematemesis. Last BM yesterday evening. Her abdominal pain has not improved despite restarting sucralfate, protonix, and mylanta. Her last EGD was in 2019 showing esophagitis and gastritis. Path negative for HP and EoE. Medication list reviewed. Past History Past Medical History: anemia Past Surgical History: hysterectomy, Other (gastric bypass) Social history: lives with family Medications and Allergies Allergies Allergy/AdvReac Type Severity Reaction Status Date / Time contrast dye Allergy Rash, Uncoded 05/27/20 07:38 reddened skin Home Medications Medication Instructions Recorded Confirmed Last Taken Type ALPRAZolam [Xanax] 2 mg PO TID 11/01/12 03/10/18 10/31/12 23:30 History Duloxetine HCl [Cymbalta] 60 mg PO QDAY 11/01/12 03/10/18 10/31/12 08:00 History Levothyroxine [Synthroid] 125 mcg PO QAM 11/01/12 03/10/18 10/31/12 07:00 History Pregabalin [Lyrica] 150 mg PO TID 11/01/12 03/10/18 10/31/12 22:00 History SUMAtriptan SUCCINATE [Imitrex] 100 mg PO PRN PRN 11/01/12 03/10/18 10/31/12 22:30 History Potassium Chloride [Klor-Con 10] 10 meq PO DAILY 10/28/13 03/10/18 Unknown History Sennosides/Docusate Sodium [Stool 100 mg PO DAILY 10/28/13 03/10/18 Unknown History Softener Tablet] ALBUTEROL NEB's [Proventil] 2.5 mg IH TID PRN 03/10/18 03/10/18 Unknown History Acyclovir [Zovirax Tab] 800 mg PO Q12H PRN 03/10/18 03/10/18 Unknown History Albuterol Sulfate [Ventolin Hfa] 2 puff IH Q4H PRN 03/10/18 03/10/18 Unknown History Buspirone HCl [busPIRone] 7.5 mg PO DAILY 03/10/18 03/10/18 Unknown History Cetirizine HCl [All Day Allergy] 10 mg PO DAILY 03/10/18 03/10/18 Unknown History Dicyclomine [Bentyl] 20 mg PO BID 03/10/18 03/10/18 Unknown History Ergocalciferol [Vitamin D2] 1 cap PO QWEEK 03/10/18 03/10/18 Unknown History FLUoxetine HCL [Fluoxetine HCl] 40 mg PO DAILY 03/10/18 03/10/18 Unknown History Ferrous Sulfate [Feosol 325 MG tab] 325 mg PO TID 03/10/18 03/10/18 Unknown History Fluticasone [Flonase] 1 spray NS BID 03/10/18 03/10/18 Unknown History Hydrocortisone [Anusol-Hc] 30 gm RC DAILY PRN 03/10/18 03/10/18 Unknown History Ibuprofen [Motrin] 800 mg PO Q8HR PRN 03/10/18 03/10/18 Unknown History Lidocaine Topical 2% 30Ml 1 cream TRANSDERMA PRN PRN 03/10/18 03/10/18 Unknown History [Xylocaine Topical 2% 30Ml] Montelukast [Singulair] 10 mg PO QPM 03/10/18 03/10/18 Unknown History Norelgestromin/Ethin.estradiol 1 each TD QWEEK 03/10/18 03/10/18 Unknown History [Xulane Patch] Ondansetron [Zofran TAB] 4 mg PO Q8HR PRN 03/10/18 03/10/18 Unknown History Oxycodone HCl/Acetaminophen 1 each PO Q6HR PRN 03/10/18 03/10/18 Unknown History [Percocet 10/325 mg] amLODIPine [Norvasc] 10 mg PO DAILY 03/10/18 03/10/18 Unknown History cloNIDine HCL [Catapres] 0.3 mg PO HS 03/10/18 03/10/18 Unknown History propranoloL [Inderal] 40 mg PO DAILY 03/10/18 03/10/18 Unknown History HYDROcodone/ACETAMINOPHEN [[place] 1 each PO Q6H PRN #30 tablet 03/16/18 Unknown Rx 5-325 Tablet] Ibuprofen [Motrin] 800 mg PO Q8HR PRN #60 tablet 03/16/18 Unknown Rx Fluconazole [Diflucan] 150 mg PO ONCE #1 tablet 04/04/18 Unknown Rx levoFLOXacin [Levaquin TAB] 500 mg PO QDAY #14 tablet 04/04/18 Unknown Rx metroNIDAZOLE [Flagyl] 500 mg PO Q12HR #14 tab 04/04/18 Unknown Rx oxyCODONE /ACETAMINOPHEN [Percocet 1 tab PO Q6HR PRN #30 tablet 04/04/18 Unknown Rx 5/325] Nitrofurantoin [place]/M-Cryst 100 mg PO Q12HR #10 capsule 11/17/18 Unknown Rx [Macrobid CAP] traMADoL [Ultram] 50 mg PO Q6HR PRN #10 tablet 11/17/18 Unknown Rx Review of Systems - Review of Systems All systems: negative Constitutional: no weight gain, no fever, no chills Cardiovascular: no chest pain Gastrointestinal: abdominal pain, nausea, vomiting, hematemesis, melena Musculoskeletal: no gait dysfunction Neurological: weakness Endocrine: no cold intolerance Hematologic/Lymphatic: no easy bruising Allergic/Immunologic: no wheezing Exam - Constitutional Vital Signs: Temp Pulse Resp BP Pulse Ox 98.9 F 20 L 18 127/54 100 05/27/20 07:45 05/27/20 11:31 05/27/20 11:32 05/27/20 11:31 05/27/20 07:45 General appearance: no acute distress - EENT ENT: hearing intact - Respiratory Respiratory effort: normal - Cardiovascular Rhythm: regular Heart Sounds: Present: S1 & S2 - Gastrointestinal General gastrointestinal: Present: soft, tender, non-distended - Integumentary Integumentary: Present: clear, warm - Psychiatric Psychiatric: appropriate mood/affect - Labs CBC & Chem 7: 05/27/20 07:57 05/27/20 07:57 Lab Results: Laboratory Results - last 24 hr 05/27/20 05/27/20 05/27/20 07:57 07:57 07:59 WBC 5.5 RBC 3.71 Hgb 12.5 Hct 36.8 MCV 99 H MCH 34 H MCHC 34 RDW 16.2 H Plt Count 276 Lymph % (Auto) 28.2 [place] % (Auto) 5.6 Eos % (Auto) 5.8 H Baso % (Auto) 0.3 Lymph # (Auto) 1.5 [place] # (Auto) 0.3 Eos # (Auto) 0.3 Baso # (Auto) 0.0 Seg Neutrophils % 60.1 Seg Neutrophils # 3.3 PT INR APTT Sodium 143 Potassium 3.4 L Chloride 108.7 H Carbon Dioxide 28 Anion Gap 10 BUN 12 Creatinine 0.5 L Estimated GFR > 60 BUN/Creatinine Ratio 24 Glucose 92 Calcium 8.7 Total Bilirubin 0.40 AST 13 ALT 8 Alkaline Phosphatase 75 Total Protein 6.4 Albumin 4.2 Albumin/Globulin Ratio 1.9 Urine Color Yellow Urine Turbidity Hazy Urine pH 6.0 Ur Specific [place] 1.029 Urine Protein 30 mg/dl Urine Glucose (UA) Neg Urine Ketones Tr Urine Blood Mod Urine Nitrite Neg Urine Bilirubin Neg Urine Urobilinogen 4.0 Ur Leukocyte Esterase Neg Urine WBC (Auto) 2.0 Urine RBC (Auto) 49.0 U Epithel Cells (Auto) 14.0 H Urine Bacteria (Auto) 1+ Urine Mucus 1+ 05/27/20 10:39 WBC RBC Hgb Hct MCV MCH MCHC RDW Plt Count Lymph % (Auto) [place] % (Auto) Eos % (Auto) Baso % (Auto) Lymph # (Auto) [place] # (Auto) Eos # (Auto) Baso # (Auto) Seg Neutrophils % Seg Neutrophils # PT 13.7 INR 1.06 APTT 27.5 Sodium Potassium Chloride Carbon Dioxide Anion Gap BUN Creatinine Estimated GFR BUN/Creatinine Ratio Glucose Calcium Total Bilirubin AST ALT Alkaline Phosphatase Total Protein Albumin Albumin/Globulin Ratio Urine Color Urine Turbidity Urine pH Ur Specific [place] Urine Protein Urine Glucose (UA) Urine Ketones Urine Blood Urine Nitrite Urine Bilirubin Urine Urobilinogen Ur Leukocyte Esterase Urine WBC (Auto) Urine RBC (Auto) U Epithel Cells (Auto) Urine Bacteria (Auto) Urine Mucus - Imaging CT Scan: report reviewed Assessment and Plan # Melena/hematemesis - suspect upper GI bleed. ddx including PUD, esophagitis, gastritis - HD stable. - Hgb at 12. previously received IV iron infusions with hematology outpatient since 03/2020 - CT a/p without contrast showing hyperattenuating material in the distal small bowel. Rec - PPI IV - NPO MN - will plan for EGD tomorrow - monitor for signs of active bleeding. - trend H/H serially and transfuse with Hgb goal >7. - in case of active bleeding with hemodynamic instability requiring more urgent endoscopy, may need to be transferred to another facility as GI endoscopy unit is not available afterhours.
[2020-05-27] MEDS ORDERED: MORPHINE 2 MG/1 ML INJ IV PRN (17:39)
[2020-05-27] MEDS ORDERED: ACETAMINOPHEN 325 MG TAB PO PRN (17:39)
[2020-05-27] MEDS ORDERED: METOCLOPRAMIDE 10 MG/2 ML INJ IV PRN (17:39)
[2020-05-27] MEDS ORDERED: D5W/0.9% NACL 1,000 ML IV SCH (18:00)
[2020-05-27] MEDS: HYDROmorphone 1 MG/1 ML INJ IV PRN ×2 (18:17→23:50)
--- NOTE | 2020-05-27 22:51 | History and Physical Report ---
History of Present Illness Date of examination: 05/27/20 Date of admission: 05/27/20 13:23 Chief complaint: Backslash stools for 3 to 4 days and hematemesis since a.m. History of present illness: 50-year-old -[place] female with history of prior GI bleed, hyp othyroidism, vitamin D deficiency and depression comes in for black tarry stools for 3 to 4 days and hematemesis today. Patient had a rotator cuff repair and patient was started on ibuprofen. Patient had a previous GI bleed. In spite of that ibuprofen was given in the place of tramadol opiates. Patient started having black tarry stools last 3 to 4 days and hematemesis today. Epigastric pain presents. Patient also suffers from chronic anemia and gets iron infusions. Patient had a biopsy gastric bypass surgery in 2008. - Past Medical History --Hypertension: Yes --GERD: Yes --Arthritis: Yes (Hands) --Headaches / Migraines: Yes --Seizures: Yes (Not sure, may have had one but not diagnosed) --Asthma: Yes Additional medical history: hypothyroid. fibromyalgia - Surgical History Additional Surgical History: gastric bypass/ SHOULDER SURGERY - Social History Smoking Status: Never Smoker Substance Use Type: None Review of Systems ROS: Constitutional no weight loss or weight gain no fever or chills HEENT no sore throat no post nasal drip no diplopia Neck no neck stiffness no lymph gland enlargement Chest and lungs no shortness of breath cough or wheezing CVS no chest pain no diaphoresis no palpitations GI hematemesis for 1 day and tarry stools for 3 to 4 days. Patient on ibuprofen. 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 seizures Skin no rash no itching Psychiatric no depression no homicidal or suicidal tendencies Hematologic no lymphedema or bruising Endocrine no polydipsia no polyuria no cold intolerance no heat intolerance Past History Past Medical History: anemia Past Surgical History: hysterectomy, Other (gastric bypass) Social history: lives with family Medications and Allergies Allergies Allergy/AdvReac Type Severity Reaction Status Date / Time contrast dye Allergy Rash, Uncoded 05/27/20 07:38 reddened skin Home Medications Medication Instructions Recorded Confirmed Last Taken Type ALPRAZolam [Xanax] 2 mg PO TID 11/01/12 03/10/18 10/31/12 23:30 History Duloxetine HCl [Cymbalta] 60 mg PO QDAY 11/01/12 03/10/18 10/31/12 08:00 History Levothyroxine [Synthroid] 125 mcg PO QAM 11/01/12 03/10/18 10/31/12 07:00 History Pregabalin [Lyrica] 150 mg PO TID 11/01/12 03/10/18 10/31/12 22:00 History SUMAtriptan SUCCINATE [Imitrex] 100 mg PO PRN PRN 11/01/12 03/10/18 10/31/12 22:30 History Potassium Chloride [Klor-Con 10] 10 meq PO DAILY 10/28/13 03/10/18 Unknown History Sennosides/Docusate Sodium [Stool 100 mg PO DAILY 10/28/13 03/10/18 Unknown History Softener Tablet] ALBUTEROL NEB's [Proventil] 2.5 mg IH TID PRN 03/10/18 03/10/18 Unknown History Acyclovir [Zovirax Tab] 800 mg PO Q12H PRN 03/10/18 03/10/18 Unknown History Albuterol Sulfate [Ventolin Hfa] 2 puff IH Q4H PRN 03/10/18 03/10/18 Unknown History Buspirone HCl [busPIRone] 7.5 mg PO DAILY 03/10/18 03/10/18 Unknown History Cetirizine HCl [All Day Allergy] 10 mg PO DAILY 03/10/18 03/10/18 Unknown History Dicyclomine [Bentyl] 20 mg PO BID 03/10/18 03/10/18 Unknown History Ergocalciferol [Vitamin D2] 1 cap PO QWEEK 03/10/18 03/10/18 Unknown History FLUoxetine HCL [Fluoxetine HCl] 40 mg PO DAILY 03/10/18 03/10/18 Unknown History Ferrous Sulfate [Feosol 325 MG tab] 325 mg PO TID 03/10/18 03/10/18 Unknown History Fluticasone [Flonase] 1 spray NS BID 03/10/18 03/10/18 Unknown History Hydrocortisone [Anusol-Hc] 30 gm RC DAILY PRN 03/10/18 03/10/18 Unknown History Ibuprofen [Motrin] 800 mg PO Q8HR PRN 03/10/18 03/10/18 Unknown History Lidocaine Topical 2% 30Ml 1 cream TRANSDERMA PRN PRN 03/10/18 03/10/18 Unknown History [Xylocaine Topical 2% 30Ml] Montelukast [Singulair] 10 mg PO QPM 03/10/18 03/10/18 Unknown History Norelgestromin/Ethin.estradiol 1 each TD QWEEK 03/10/18 03/10/18 Unknown History [Xulane Patch] Ondansetron [Zofran TAB] 4 mg PO Q8HR PRN 03/10/18 03/10/18 Unknown History Oxycodone HCl/Acetaminophen 1 each PO Q6HR PRN 03/10/18 03/10/18 Unknown History [Percocet 10/325 mg] amLODIPine [Norvasc] 10 mg PO DAILY 03/10/18 03/10/18 Unknown History cloNIDine HCL [Catapres] 0.3 mg PO HS 03/10/18 03/10/18 Unknown History propranoloL [Inderal] 40 mg PO DAILY 03/10/18 03/10/18 Unknown History HYDROcodone/ACETAMINOPHEN [Girard 1 each PO Q6H PRN #30 tablet 03/16/18 Unknown Rx 5-325 Tablet] Ibuprofen [Motrin] 800 mg PO Q8HR PRN #60 tablet 03/16/18 Unknown Rx Fluconazole [Diflucan] 150 mg PO ONCE #1 tablet 04/04/18 Unknown Rx levoFLOXacin [Levaquin TAB] 500 mg PO QDAY #14 tablet 04/04/18 Unknown Rx metroNIDAZOLE [Flagyl] 500 mg PO Q12HR #14 tab 04/04/18 Unknown Rx oxyCODONE /ACETAMINOPHEN [Percocet 1 tab PO Q6HR PRN #30 tablet 04/04/18 Unknown Rx 5/325] Nitrofurantoin Frontier/M-Cryst 100 mg PO Q12HR #10 capsule 11/17/18 Unknown Rx [Macrobid CAP] traMADoL [Ultram] 50 mg PO Q6HR PRN #10 tablet 11/17/18 Unknown Rx Active Meds: Active Medications Acetaminophen (Acetaminophen 325 Mg Tab) 650 mg PO Q4H PRN PRN Reason: Pain MILD(1-3)/Fever >100.5/MERRILL Hydromorphone HCl (Hydromorphone 1 Mg/1 Ml Inj) 0.5 mg IV Q3H PRN PRN Reason: Pain , Severe (7-10) Last Admin: 05/27/20 18:17 Dose: 0.5 mg Documented by: Dextrose/Sodium Chloride (D5ns) 1,000 mls @ 100 mls/hr IV DIRECT AMY Pantoprazole Sodium 80 mg/ (Sodium Chloride) 100 mls @ 10 mls/hr IV DIRECT AMY Metoclopramide HCl (Metoclopramide 10 Mg/2 Ml Inj) 10 mg IV Q6H PRN PRN Reason: Nausea And Vomiting Morphine Sulfate (Morphine 2 Mg/1 Ml Inj) 2 mg IV Q4H PRN PRN Reason: Pain, Moderate (4-6) Last Admin: 05/27/20 22:03 Dose: 2 mg Documented by: Ondansetron HCl (Ondansetron 4 Mg/2 Ml Inj) 4 mg IV Q3H PRN PRN Reason: Nausea And Vomiting Sodium Chloride (Sodium Chloride 0.9% 10 Ml Flush Syringe) 10 ml IV BID AMY Sodium Chloride (Sodium Chloride 0.9% 10 Ml Flush Syringe) 10 ml IV PRN PRN PRN Reason: LINE FLUSH Exam - Constitutional Vitals: Temp Pulse Resp BP Pulse Ox 97.4 F L 45 L 18 143/71 98 05/27/20 22:02 05/27/20 21:56 05/27/20 22:02 05/27/20 21:56 05/27/20 21:56 General appearance: Present: no acute distress, well-nourished - EENT Eyes: Present: PERRL ENT: hearing intact, clear oral mucosa - Neck Neck: Present: supple, normal ROM - Respiratory Respiratory effort: normal Respiratory: bilateral: CTA - Cardiovascular Heart rate: 78 Rhythm: regular Heart Sounds: Present: S1 & S2. Absent: rub, click - Extremities Extremities: no ischemia, pulses intact, pulses symmetrical, No edema Peripheral Pulses: within normal limits - Abdominal General gastrointestinal: Present: soft, non-tender, non-distended, normal bowel sounds Female genitourinary: Present: normal - Rectal Rectal Exam: stool dark (Occult blood positive) - Integumentary Integumentary: Present: clear, warm, dry - Musculoskeletal Musculoskeletal: gait normal, strength equal bilaterally - Psychiatric Psychiatric: appropriate mood/affect, intact judgment & insight - Neurologic Neurologic: CNII-XII intact, moves all extremities Results - Labs CBC & Chem 7: 05/27/20 07:57 05/27/20 07:57 Labs: Laboratory Last Values WBC 5.5 K/mm3 (4.5-11.0) 05/27/20 07:57 RBC 3.71 M/mm3 (3.65-5.03) 05/27/20 07:57 Hgb 12.5 gm/dl (10.1-14.3) 05/27/20 07:57 Hct 36.8 % (30.3-42.9) 05/27/20 07:57 MCV 99 fl (79-97) H 05/27/20 07:57 MCH 34 pg (28-32) H 05/27/20 07:57 MCHC 34 % (30-34) 05/27/20 07:57 RDW 16.2 % (13.2-15.2) H 05/27/20 07:57 Plt Count 276 K/mm3 (140-440) 05/27/20 07:57 Lymph % (Auto) 28.2 % (13.4-35.0) 05/27/20 07:57 Frontier % (Auto) 5.6 % (0.0-7.3) 05/27/20 07:57 Eos % (Auto) 5.8 % (0.0-4.3) H 05/27/20 07:57 Baso % (Auto) 0.3 % (0.0-1.8) 05/27/20 07:57 Lymph # (Auto) 1.5 K/mm3 (1.2-5.4) 05/27/20 07:57 Frontier # (Auto) 0.3 K/mm3 (0.0-0.8) 05/27/20 07:57 Eos # (Auto) 0.3 K/mm3 (0.0-0.4) 05/27/20 07:57 Baso # (Auto) 0.0 K/mm3 (0.0-0.1) 05/27/20 07:57 Seg Neutrophils % 60.1 % (40.0-70.0) 05/27/20 07:57 Seg Neutrophils # 3.3 K/mm3 (1.8-7.7) 05/27/20 07:57 PT 13.7 Sec. (12.2-14.9) 05/27/20 10:39 INR 1.06 (0.87-1.13) 05/27/20 10:39 APTT 27.5 Sec. (24.2-36.6) 05/27/20 10:39 Sodium 143 mmol/L (137-145) 05/27/20 07:57 Potassium 3.4 mmol/L (3.6-5.0) L 05/27/20 07:57 Chloride 108.7 mmol/L (98-107) H 05/27/20 07:57 Carbon Dioxide 28 mmol/L (22-30) 05/27/20 07:57 Anion Gap 10 mmol/L 05/27/20 07:57 BUN 12 mg/dL (7-17) 05/27/20 07:57 Creatinine 0.5 mg/dL (0.6-1.2) L 05/27/20 07:57 Estimated GFR > 60 ml/min 05/27/20 07:57 BUN/Creatinine Ratio 24 % 05/27/20 07:57 Glucose 92 mg/dL (65-100) 05/27/20 07:57 Calcium 8.7 mg/dL (8.4-10.2) 05/27/20 07:57 Total Bilirubin 0.40 mg/dL (0.1-1.2) 05/27/20 07:57 AST 13 units/L (5-40) 05/27/20 07:57 ALT 8 units/L (7-56) 05/27/20 07:57 Alkaline Phosphatase 75 units/L (35-129) 05/27/20 07:57 Total Protein 6.4 g/dL (6.3-8.2) 05/27/20 07:57 Albumin 4.2 g/dL (3.9-5) 05/27/20 07:57 Albumin/Globulin Ratio 1.9 % 05/27/20 07:57 Urine Color Yellow (Yellow) 05/27/20 07:59 Urine Turbidity Hazy (Clear) 05/27/20 07:59 Urine pH 6.0 (5.0-7.0) 05/27/20 07:59 Ur Specific [place] 1.029 (1.003-1.030) 05/27/20 07:59 Urine Protein 30 mg/dl mg/dL (Negative) 05/27/20 07:59 Urine Glucose (UA) Neg mg/dL (Negative) 05/27/20 07:59 Urine Ketones Tr mg/dL (Negative) 05/27/20 07:59 Urine Blood Mod (Negative) 05/27/20 07:59 Urine Nitrite Neg (Negative) 05/27/20 07:59 Urine Bilirubin Neg (Negative) 05/27/20 07:59 Urine Urobilinogen 4.0 mg/dL (<2.0) 05/27/20 07:59 Ur Leukocyte Esterase Neg (Negative) 05/27/20 07:59 Urine WBC (Auto) 2.0 /HPF (0.0-6.0) 05/27/20 07:59 Urine RBC (Auto) 49.0 /HPF (0.0-6.0) 05/27/20 07:59 U Epithel Cells (Auto) 14.0 /HPF (0-13.0) H 05/27/20 07:59 Urine Bacteria (Auto) 1+ /HPF (Negative) 05/27/20 07:59 Urine Mucus 1+ /HPF 05/27/20 07:59 Short CBC 05/27/20 Range/Units 07:57 WBC 5.5 (4.5-11.0) K/mm3 Hgb 12.5 (10.1-14.3) gm/dl Hct 36.8 (30.3-42.9) % Plt Count 276 (140-440) K/mm3 BMP 05/27/20 07:57 Sodium 143 Potassium 3.4 L Chloride 108.7 H Carbon Dioxide 28 BUN 12 Creatinine 0.5 L Glucose 92 Calcium 8.7 Liver Function 05/27/20 Range/Units 07:57 Total Bilirubin 0.40 (0.1-1.2) mg/dL AST 13 (5-40) units/L ALT 8 (7-56) units/L Alkaline Phosphatase 75 (35-129) units/L Albumin 4.2 (3.9-5) g/dL Urine 05/27/20 Range/Units 07:59 Urine Color Yellow (Yellow) Urine pH 6.0 (5.0-7.0) Ur Specific [place] 1.029 (1.003-1.030) Urine Protein 30 mg/dl (Negative) mg/dL Urine Glucose (UA) Neg (Negative) mg/dL Microbiology: Microbiology 05/27/20 11:20 Stool Stool Occult Blood (PEG) - Final - Imaging and Cardiology CT scan - abdomen: report reviewed Imaging and Cardiology: Abdominal CAT scan Hyperattenuating intraluminal material within the distal small bowel and proximal colon concerning for intraluminal hemorrhage given the patient's clinical history. The greatest focus is in the distal small bowel loops at pelvis adjacent to the rectal veins. Which is likely source for bleeding. Correlate with patient's history to exclude ingestion of any hyperattenuating material p.o. contrast. Postsurgical changes to the stomach and small bowel are stable since prior exam additional findings are unchanged from prior. Assessment and Plan Advance Directives: Yes (Full code) VTE prophylaxis?: Chemical Plan of care discussed with patient/family: Yes - Patient Problems (1) GI bleed Current Visit: Yes Status: Acute Plan to address problem: Probably upper GI bleed secondary to NSAIDs IV Protonix initiated IV fluids initiated GI consult initiated next hemoglobin and hematocrit to be checked every 8 hours and transfuse if necessary (2) Hypothyroidism (acquired) Current Visit: Yes Status: Chronic Plan to address problem: Continue Synthroid and check TSH (3) Generalized anxiety disorder Current Visit: Yes Status: Chronic Plan to address problem: Xanax on hold Ativan as needed (4) Peripheral neuropathy Current Visit: Yes Status: Acute Qualifiers: Peripheral neuropathy type: polyneuropathy, unspecified Qualified Code(s): G62.9 - Polyneuropathy, unspecified Plan to address problem: Lyrica on hold (5) Depression Current Visit: Yes Status: Chronic Qualifiers: Depression Type: unspecified Qualified Code(s): F32.9 - Major depressive d isorder, single episode, unspecified Plan to address problem: Antidepressants on hold (6) DVT prophylaxis Current Visit: Yes Status: Acute Plan to address problem: On SCDs and GI prophylaxis
[2020-05-27] MEDS ORDERED: ALBUTEROL 2.5 MG/3 ML NEBU IH PRN ×2 (22:57→23:07)
[2020-05-27] MEDS ORDERED: ALBUTEROL 8.5 GM MDI INHALATION IH PRN (22:57)
[2020-05-27] MEDS ORDERED: cloNIDine TTS 0.1 MG/24 HR PATCH TD SCH (23:00)
[2020-05-27] MEDS ORDERED: diphenhydrAMINE 50 MG/ML VIAL IV ONE (23:35)
[2020-05-27] MEDS ORDERED: diphenhydrAMINE 50 MG/ML VIAL ONE (23:47)
[2020-05-28] MEDS: PANTOPRAZOLE 80 MG in SODIUM CHLORIDE 0.9% 100 ML IV SCH ×2 (00:50→11:45)
[2020-05-28] MEDS: ONDANSETRON 4 MG/2 ML INJ IV PRN ×2 (05:18→15:39)
[2020-05-28] MEDS: HYDROmorphone 1 MG/1 ML INJ IV PRN ×3 (05:19→15:36)
[2020-05-28 06:57] LABS: Basophils % (Auto) 0.3 % (0.0-1.8); Eosinophils # (Auto) 0.3 K/mm3 (0.0-0.4); Eosinophils % (Auto) 7.5 % (0.0-4.3); Hematocrit 36.8 % (30.3-42.9); Hemoglobin 12.4 gm/dl (10.1-14.3); Lymphocytes # (Auto) 1.9 K/mm3 (1.2-5.4); Lymphocytes % (Auto) 42.7 % (13.4-35.0); Mean Corpuscular HGB Conc 34 % (30-34); Mean Corpuscular Volume 101 fl (79-97); Monocytes # (Auto) 0.3 K/mm3 (0.0-0.8); Monocytes % (Auto) 6.2 % (0.0-7.3); Platelet Count 246 K/mm3 (140-440); Red Blood Count 3.65 M/mm3 (3.65-5.03); Red Cell Distribution Width 15.3 % (13.2-15.2)
[2020-05-28 07:23] LABS: Alanine Aminotransferase 7 units/L (7-56); Albumin 3.7 g/dL (3.9-5); Blood Urea Nitrogen 9 mg/dL (7-17); Hemolysis Index 5
[2020-05-28 07:24] LABS: BUN/Creatinine Ratio 18
[2020-05-28] MEDS ORDERED: SODIUM CHLORIDE 0.9% 1000 ML 1,000 ML ONE (07:44)
[2020-05-28] MEDS ORDERED: GLYCOPYRROLATE 0.4 MG/2 ML INJ ONE (08:00)
[2020-05-28] MEDS ORDERED: LIDOCAINE MPF (2%) 20 MG/1 ML VIAL 5 ML ONE (08:00)
[2020-05-28] MEDS ORDERED: propofoL 200 MG/20 ML VIAL IV ONE (08:09)
--- NOTE | 2020-05-28 08:09 | Anesthesia Consultation ---
Anesthesia Consult and Med Hx Date of service: 05/28/20 - Airway Anesthetic Teeth Evaluation: Good ROM Head & Neck: Adequate Mental/Hyoid Distance: Adequate Mallampati Class: Class II - Pulmonary Exam CTA: Yes - Cardiac Exam Cardiac Exam: RRR - Pre-Operative Health Status ASA Pre-Surgery Classification: ASA2 Proposed Anesthetic Plan: MAC - Pulmonary Hx Asthma: Yes COPD: No Hx Pneumonia: No Hx Sleep Apnea: Yes (No CPAP, before bypass) - Cardiovascular System Hx Hypertension: Yes Hx Heart Murmur: Yes - Central Nervous System Hx Seizures: Yes (Not sure, may have had one but not diagnosed) Hx Psychiatric Problems: No - Endocrine Hx End Stage Renal Disease: No Hx Hypothyroidism: Yes - Hematic Hx Anemia: Yes (Past hx) - Other Systems Hx Alcohol Use: Yes (Occas) Hx Cancer: No
--- NOTE | 2020-05-28 08:10 | Anesthesia Day of Surgery ---
Anesthesia Day of Surgery - Day of Surgery Patient Examined: Yes Patient H&P Reviewed: Yes Patient is NPO: Yes
[2020-05-28] MEDS ORDERED: MIDAZOLAM 2 MG/2 ML INJ ONE (08:15)
--- NOTE | 2020-05-28 08:35 | Operative Report ---
Operative Report Operative Report: Date:05/28/2020 Pre procedure diagnosis:melena, hematemesis Post procedure diagnosis:post surgical changes with gastric bypass, gastric erythema Procedure: Esophagogastroduodenoscopy Endoscopist: Jace Amor MD Medications: Per anesthesia- see separate records for details Complications:none Estimated blood loss: minimal After careful discussion of the nature and purpose of the procedure, details of the technique, risks, benefits and alternatives, the patient gave consent. The patient was placed in the left lateral decubitus position and medicated by anesthesia- see separate records for details. The tip of the olympus video upper scope was passed per orum under direct view through the mouth and into the esophagus, stomach and duodenum. The scope was advanced to the efferent small bowel limb without difficulty. The efferent small bowel limb appeared normal with normal appearing small bowel mucosa. No signs of ulcers, erosions, or inflammatory changes. The scope was withdrawn back into the stomach and the stomach gently insufflated with air. There was small gastric remnant with mild erythematous mucosa. Biopsies obtained. No signs of ulcers or erosions noted. The EG junction was at 38 cm. The esophagus appeared normal. The procedure was well tolerated and the patient was observed in the GI recovery unit. IMPRESSION: 1. Post surgical changes with gastric bypass anatomy with gastrojejunostomy noted. 2. Small gastric remnant with mild erythematous mucosa. Biopsies obtained. 3. Normal esophagus exam. 4. No signs of GI bleeding noted. Plan: 1. Resume diet with clear liquids and advance as tolerated. 2. Continue with protonix. Switch to PO dosing. 3. Patient may have iron deficiency due to gastric bypass history and will need to follow up with her meat stuffer. 4. Follow up outpatient with Dr. Hyman as scheduled. Jace Arredondo (Amelia Amor MD [facility]
--- NOTE | 2020-05-28 08:36 | Post Anesthesia Evaluation ---
- Post Anesthesia Evaluation Patient Participated: Yes Airway Patent: Yes Stable Respiratory Function: Yes Nausea/Vomiting: No Temp > 96.8F: Yes Pain Manageable: Yes Adequeate Hydration: Yes Anesthesia Complications: No Block Receding Appropriately: Not Applicable Patient on Ventilator: No
[2020-05-28] MEDS: SUCRALFATE 1 GM/10 ML ORAL LIQD PO SCH ×2 (10:30→15:36)
[2020-05-28] MEDS ORDERED: POTASSIUM CHLORIDE ER 20 MEQ TAB PO NR (11:30)
[2020-05-28] MEDS ORDERED: POTASSIUM CHLORIDE 10 MEQ 10 MEQ/100 ML BAG IV SCH (12:00)
[2020-05-28 12:31] VITALS: BP 116/71
--- NOTE | 2020-05-28 12:42 | Discharge Summary ---
Providers - Providers Date of Admission: 05/27/20 13:23 Date of discharge: 05/28/20 Attending physician: NORMA SOLANO 05/27/20 12:45 Consult to Physician [CONS] Urgent Comment: Consulting Provider: JUNITO BELLO Physician Instructions: Reason For Exam: Concern for GI bleed Primary care physician: JOSE LUIS MIXON NP Hospitalization Condition: Stable Pertinent studies: Abdomen pelvis CT: 1. Hyperattenuating intraluminal material within the distal small bowel and proximal colon concerning for intraluminal hemorrhage given the patient's clinical history. The greatest focus in the distal small bowel loops of the pelvis adjacent to the rectal vault (series 2 image [id number]), which is likely the source for bleeding. Correlate with patient's history to exclude ingestion of any hyperattenuating material or p.o. contrast. 2. Postsurgical changes to the stomach and small bowel are stable since prior exam. Additional findings are unchanged from prior. Hospital course: 50-year-old -[place] female with history of prior GI bleed, hypothyroidism, vitamin D deficiency and depression comes in for black tarry stools for 3 to 4 days and hematemesis for one day. Patient had a recent rotator cuff repair and patient was started on ibuprofen. Patient also suffers from chronic anemia and gets iron infusions. Patient had a recent gastric bypass surgery in 2008. In the ER her H&H was stable, stool was positive for occult blood. GI was consulted and patient undergone EGD which showed postsur gical changes with a gastric bypass anatomy and gastrojejunostomy, small gastric remnant with mild erythematous mucosa. No stigmata of GI bleeding noted, and also found to have normal esophagus. GI recommended to continue Protonix and follow-up outpatient with Dr. Hyman. Patient was then started on clear liquid diet and recommended to advance as tolerated. Patient was then discharged home in stable condition with outpatient follow-up. Disposition: TO HOME OR SELFCARE Final Discharge Diagnosis (Prints w/discharge instructions): Upper GI bleed, hypothyroidism, hypokalemia, generalized anxiety disorder, peripheral neuropathy, depression. Time spent for discharge: 34 minutes Core Measure Documentation - Palliative Care Palliative Care/ Comfort Measures: Not Applicable - Core Measures Any of the following diagnoses?: none Exam - Physical Exam Narrative exam: General appearance: Present: no acute distress, well-nourished - EENT Eyes: Present: PERRL ENT: hearing intact, clear oral mucosa - Neck Neck: Present: supple, normal ROM - Respiratory Respiratory effort: normal Respiratory: bilateral: CTA - Cardiovascular Heart rate: 78 Rhythm: regular Heart Sounds: Present: S1 & S2. - Extremities Extremities: no ischemia, pulses intact, pulses symmetrical, No edema - Abdominal General gastrointestinal: Present: soft, non-tender, non-distended, normal bowel sounds - Integumentary Integumentary: Present: clear, warm, dry - Musculoskeletal Musculoskeletal: gait normal, strength equal bilaterally - Psychiatric Psychiatric: appropriate mood/affect, intact judgment & insight - Neurologic Neurologic: CNII-XII intact, moves all extremities - Constitutional Vitals: Temp Pulse Resp BP Pulse Ox 98.4 F 62 22 116/71 99 05/28/20 12:10 05/28/20 12:10 05/28/20 12:10 05/28/20 12:10 05/28/20 12:10 Plan Activity: advance as tolerated Diet: advance as tolerated Additional Instructions: Follow-up with GI in 2 to 4 weeks Follow up with: JOSE LUIS MIXON NP [Primary Care Provider] - 3-5 Days Forms: Release Restrictions Prescriptions: Sucralfate [Carafate] 1 gm PO ACHS 15 Days oral.liqd Potassium Chloride [K-Dur] 10 meq PO QDAY #14 tablet Oxycodone HCl/Acetaminophen [Percocet 10/325 mg] 1 each PO Q6HR PRN #10 PRN Reason: Pain Pantoprazole [Protonix TAB] 40 mg PO BIDAC #60 tablet Metoclopramide HCl [Reglan TAB] 5 mg PO TIDAC #60 tablet
[2020-05-28 16:15] LABS: Hematocrit 41.3 % (30.3-42.9); Hemoglobin 13.6 gm/dl (10.1-14.3)
[2020-05-28] MEDS ORDERED: PANTOPRAZOLE 40 MG TAB PO SCH (16:30)
== END 2020-05-28 18:09 | disposition home or self-care (01) ==
LOC: ED 07:37 → INTOOBSV 13:23 → 3A 13:23
PROVIDERS: ADMIT Internal Medicine; ATTEND Internal Medicine
DX: K92.2 Gastrointestinal hemorrhage, unspecified (principal); R11.2 Nausea with vomiting, unspecified; E03.9 Hypothyroidism, unspecified; F41.9 Anxiety disorder, unspecified; G62.9 Polyneuropathy, unspecified; F32.9 Major depressive disorder, single episode, unspecified; I10 Essential (primary) hypertension; K21.9 Gastro-esophageal reflux disease without esophagitis; M19.90 Unspecified osteoarthritis, unspecified site; D64.9 Anemia, unspecified; G43.909 Migraine, unspecified, not intractable, without status migrainosus; J45.909 Unspecified asthma, uncomplicated; R56.9 Unspecified convulsions; Z98.84 Bariatric surgery status; Z98.890 Other specified postprocedural states; Z90.710 Acquired absence of both cervix and uterus
CPT/HCPCS: 36415; 43239; 74176; 80053; 81001; 82271; 83036; 85014; 85018; 85025; 85610; 85730; 88305; 96365; 96366; 96375; 96376; 99284; C9113; G0378; J1170; J1200; J2250; J2270; J2405; J2704; J7030